=== PATIENT | male | born 1950 | race Caucasian/White ===

== ENCOUNTER 2016-06-13 07:20 | Emergency (ER) | payer OTHER ==
[~2016-06-13] VITALS: Ht 175.2 cm; Wt 91.6 kg
[~2016-06-13 07:20] MED LIST: 50% Dextro25 GM/50 M IV; ACETAMINOPHEN-H1 TA2 PO; ANTIBIOTIC O500 U/GM TP; BACTRIM DS 8001 TA1 PO; BACTRIM DS 8001 TAB PO; BIAXIN500 MG PO; CIPRO500 MG PO; CLARITIN10 MG PO; CLEOCIN150 MG PO; CLINDAMYCIN HC300 MG PO; COUMADIN5 M2; DARVOCET N 1001 TAB PO; DAYPRO600 M1 PO; DEPAKOTE ER500 MG PO; DULCOLAX10 MG RC; DULCOLAX5 MG PO; FLAGYL500 MG PO; GABAPENTIN300 MG PO; GLYBURIDE5 MG PO; HYDROCODONE BIT1 T11 PO; HYDROXYZINE PAM25 MG PO; IBU-6600 MG PO; KEFLEX500 MG PO; LISINOPRIL/HCTZ1 TAB; LISINOPRIL10 MG PO; MEDROL DOSEPAK4 MG PO; MERREM IV1 GM IV; METFORMIN HCL1000 MG; METFORMIN1000 MG PO; MIRTAZAPINE15 MG PO; MIRTAZAPINE7.5 MG PO; MOM30 M1 PO; MORPHINE2 MG/1 ML IV; MOTRIN800 MG PO; NITROSTAT0.4 MG; NORCO 325 MG-51 TAB PO; NOVOLIN N100 U/ML SC; NOVOLIN R100 U/ML SC; OXYCODONE5 M1 PO; PERCOCET 325 MG1 TA5 PO; PRILOSEC20 MG PO; PROTONIX40 MG PO; ROBITUSSIN AC 110 ML PO; SERTRALINE HYD100 MG; SERTRALINE100 MG PO; SIMVASTATIN10 MG PO; SODIUM CHLORIDE IV; TEMAZEPAM15 MG PO; TRAMADOL HCL50 MG PO; TYLENOL325 M1 PO; TYLENOL650 MG R; ULTRAM50 MG PO; VANCOMYCIN IV; VICODIN 5/500 505 MG PO; VICODIN ES 7501 TAB PO; ZANTAC150 MG PO; ZITHROMAX Z PA250 MG PO; ZOCOR20 MG PO; ZOFRAN ODT4 MG SL; ZOFRAN2 MG/ML IV; [UNRECOGNIZED DRUG - REMARK]
[2016-06-13 08:24] LABS: BASO % 0.3 % (0.0-1.0); EOS # 0.1 10*3/uL (0.0-0.4); EOS % 1.7 % (1.0-4.0); HEMATOCRIT 33.6 % (42.0-52.0); LYMPH # 1.6 10*3/uL (1.3-4.4); LYMPH % 25.6 % (27.0-41.0); MEAN CORPUSCULAR HGB 27.2 pg (27.0-31.0); MEAN CORPUSCULAR HGB CONC 32.7 g/dl (33.0-37.0); MEAN PLATELET VOLUME 8.6 fl (9.6-12.3); MONO # 0.4 10*3/uL (0.1-1.0); MONO % 7.1 % (3.0-9.0); NEUT # 3.9 10*3/uL (2.3-7.9); NEUT % 64.6 % (47.0-73.0); PLATELET COUNT AUTOMATED 174 10*3/uL (130-400); RED BLOOD COUNT 4.05 10*6/uL (4.50-5.90); RED CELL DISTRI WIDTH 13.8 % (0-14.5); WHITE BLOOD COUNT 6.1 10*3/uL (4.8-10.8)
[2016-06-13 08:35] LABS: BUN 18 mg/dl (7-24); CARBON DIOXIDE 26 mmol/L (21-32); CHLORIDE 106 mmol/L (98-107); EST GLOM FILT AFRICAN AMERICAN > 60 ml/min; GLUCOSE 146 mg/dL (65-99); POTASSIUM 4.4 mmol/L (3.5-5.1); SODIUM 141 mmol/L (136-145)
[2016-06-13] MEDS ORDERED: LEVOFLOXACIN500 MG PO (09:12)
[2016-06-13 09:37] VITALS: BP 162/96
[2016-06-13] MEDS ORDERED: ALBUTEROL2.5 MG/0.5 INH (09:37)
== END 2016-06-13 09:29 | disposition home or self-care (01) ==
LOC: ED 07:20
PROVIDERS: Emergency Medicine
DX: J18.1 Lobar pneumonia, unspecified organism (principal); J02.9 Acute pharyngitis, unspecified; B34.9 Viral infection, unspecified; F41.9 Anxiety disorder, unspecified; I48.91 Unspecified atrial fibrillation; I12.9 Hypertensive chronic kidney disease with stage 1 through stage 4 chronic kidney disease, or unspecified chronic kidney disease; N18.3 Chronic kidney disease, stage 3 (moderate); F32.9 Major depressive disorder, single episode, unspecified; E87.6 Hypokalemia; M19.90 Unspecified osteoarthritis, unspecified site; Z95.0 Presence of cardiac pacemaker; Z88.0 Allergy status to penicillin; Z79.4 Long term (current) use of insulin

== ENCOUNTER 2016-11-20 23:36 | Inpatient (IN) | payer OTHER ==
[~2016-11-20] VITALS: Ht 175.3 cm; Wt 94.1 kg
--- NOTE | ~2016-11-20 | CON ---
[place], [place] REPORT OF CONSULTATION NAME: JUSTA GOLDEN [facility] #: [id number] UNIT #: [id number] ROOM: 405 DOCTOR: CRISPIN MCCULLOUGH MD BIRTHDATE: [birth year] DOS: 11/22/2016 HISTORY OF PRESENT ILLNESS: This is a 66-year-old -Vietnamese man with no known history of coronary artery disease. He does have diabetes mellitus, had atrial fibrillation in the very remote past. My note of 2007 mentioned this. He had a pacemaker implanted in 1988 and had the leads removed and now has a pacemaker in the right subclavian area. He has Smith's esophagus, diverticulosis, depression, hepatitis A infection, hiatus hernia, essential hypertension, obesity and radiculopathy of the left arm, which causes chronic pain and also sleep apnea. He had a CPAP on and developed a heavy pain around the left side of the chest as he was sleeping on his right side. It felt like a heavy weight. He woke up ____ and came to the Emergency Department. The feeling lasted for more than 2 hours. It was not accompanied by any worsening shortness of breath, palpitations, dizziness, weakness, and had no nausea at that time. He does not recall any such pain previously. He does not smoke nor does he drink alcoholic beverages. HOME MEDICATIONS: Include Ventolin HFA, Alphagan eye drops, Depakote ER, gabapentin, glyburide, hydroxyzine, Novolin, latanoprost, lisinopril, hydrochlorothiazide, metformin, mirtazapine, sertraline, simvastatin and tramadol. PHYSICAL EXAMINATION: GENERAL: The patient is a very pleasant, alert, oriented, moderately obese. His complexion is fine. He is not jaundiced. There is no thyromegaly or finger clubbing. VITAL SIGNS: Pulse is regular at 64 beats per minute, blood pressure 181/79. NECK: Normal JVP. There is no bruit in the neck. HEART: There is no cardiomegaly. Auscultation reveals no murmurs. EXTREMITIES: Pedal pulses were easily appreciated. No edema in the lower extremities. LUNGS: Clear to auscultation. ABDOMEN: Supple and nontender. LABORATORY DATA: An ECG showed normal sinus rhythm and a normal pattern. Troponin I levels have been normal. IMPRESSION: This patient with multiple risk factors for coronary artery disease, had chest pain and has ruled out for acute myocardial infarction because of many risk factors, I think it is prudent to perform a Lexiscan Cardiolite study to exclude significant coronary artery disease. I thank you on behalf of Dr. Noriega for this consult. [place], [place] REPORT OF CONSULTATION NAME: JUSTA GOLDEN UNIT #: [id number] ROOM: 405 DOCTOR: CRISPIN MCCULLOUGH MD BIRTHDATE: [birth year] CRISPIN MCCULLOUGH MD CM:CONSTR:REPORT OF CONSULTATION 1849 11/23/16 0345 interface BJORN NORIEGA MD
--- NOTE | ~2016-11-20 | ST ---
[place], [place] EXERCISE STRESS TEST REPORT [id number] UN[facility] #: [id number] ROOM: 405 DOCTOR: BJORN NORIEGA MD BIRTHDATE: [birth year] DOS: 11/23/2016 Lexiscan portion of the Lexiscan Cardiolite stress test. Baseline cardiogram, sinus with nonspecific ST-T changes with intermittent atrial pacing and ventricular sensing, 0.4 mg of Lexiscan, duration of 10 seconds. No new EKG changes. No chest pain. Blood pressure and heart rate response was normal. Nuclear images will be reported separately. FINAL IMPRESSION: Indeterminate test secondary to the underlying paced rhythm. No new EKG changes. No chest pain. Blood pressure and heart rate response was normal. Nuclear images will be reported separately. BJORN NORIEGA MD CM:STRESS:EXERCISE STRESS TEST REPORT [id number] BJORN NORIEGA MD
[~2016-11-20 23:36] MED LIST changes: +ALBUTEROL2.5 MG/0.5 INH; +LEVOFLOXACIN500 MG PO
[2016-11-20 23:45] VITALS: BP 180/90
[2016-11-21] VITALS (9 sets, daily range): BP systolic 119–161; BP diastolic 58–83
[2016-11-21 00:11] LABS: BASO % 0.4 % (0.0-1.0); EOS # 0.1 10*3/uL (0.0-0.4); EOS % 1.6 % (1.0-4.0); HEMATOCRIT 33.8 % (42.0-52.0); HEMOGLOBIN 11.1 g/dl (14.0-18.0); LYMPH # 1.9 10*3/uL (1.3-4.4); LYMPH % 22.9 % (27.0-41.0); MEAN CELL VOLUME 83.7 fl (80.0-94.0); MEAN CORPUSCULAR HGB 27.5 pg (27.0-31.0); MEAN CORPUSCULAR HGB CONC 32.8 g/dl (33.0-37.0); MONO # 0.5 10*3/uL (0.1-1.0); MONO % 6.6 % (3.0-9.0); NEUT # 5.6 10*3/uL (2.3-7.9); PLATELET COUNT AUTOMATED 165 10*3/uL (130-400); RED BLOOD COUNT 4.04 10*6/uL (4.50-5.90); RED CELL DISTRI WIDTH 13.7 % (0-14.5); WHITE BLOOD COUNT 8.2 10*3/uL (4.8-10.8)
[2016-11-21 00:21] LABS: PROTHROMBIN TIME 10.6 SECONDS (9.0-12.4)
[2016-11-21 00:28] LABS: ALBUMIN 3.5 gm/dl (3.1-4.5); ALKALINE PHOSPHATASE 74 U/L (45-117); BILIRUBIN, TOTAL 0.5 mg/dl (0.2-1.0); BUN 15 mg/dl (7-24); CARBON DIOXIDE 28 mmol/L (21-32); CHLORIDE 102 mmol/L (98-107); EST GLOM FILT AFRICAN AMERICAN > 60 ml/min; GLUCOSE 180 mg/dL (65-99); MAGNESIUM 1.9 mg/dL (1.5-2.1); SGOT/AST 17 IU/L (3-35); SGPT/ALT 21 U/L (12-78); SODIUM 137 mmol/L (136-145); TOTAL PROTEIN 8.3 gm/dL (6.4-8.2)
[2016-11-21 00:35] LABS: TROPONIN I < 0.015 ng/ml (<0.045)
[2016-11-21 06:10] LABS: BASO % 0.5 % (0.0-1.0); EOS # 0.1 10*3/uL (0.0-0.4); EOS % 1.7 % (1.0-4.0); HEMATOCRIT 31.3 % (42.0-52.0); HEMOGLOBIN 10.4 g/dl (14.0-18.0); LYMPH # 1.8 10*3/uL (1.3-4.4); LYMPH % 26.9 % (27.0-41.0); MEAN CELL VOLUME 83.9 fl (80.0-94.0); MEAN CORPUSCULAR HGB 27.9 pg (27.0-31.0); MEAN CORPUSCULAR HGB CONC 33.2 g/dl (33.0-37.0); MEAN PLATELET VOLUME 9.3 fl (9.6-12.3); MONO # 0.5 10*3/uL (0.1-1.0); MONO % 7.3 % (3.0-9.0); NEUT # 4.2 10*3/uL (2.3-7.9); NEUT % 63.1 % (47.0-73.0); PLATELET COUNT AUTOMATED 156 10*3/uL (130-400); RED BLOOD COUNT 3.73 10*6/uL (4.50-5.90); RED CELL DISTRI WIDTH 13.7 % (0-14.5); WHITE BLOOD COUNT 6.6 10*3/uL (4.8-10.8)
[2016-11-21 06:23] LABS: HEMOGLOBIN A1c 8.1 % (4.8-5.6)
[2016-11-21 06:29] LABS: CPK 129 U/L (39-308); TROPONIN I < 0.015 ng/ml (<0.045)
[2016-11-21 06:45] LABS: BUN 14 mg/dl (7-24); CARBON DIOXIDE 25 mmol/L (21-32); CHLORIDE 106 mmol/L (98-107); CHOLESTEROL 119 mg/dL (<200); EST GLOM FILT AFRICAN AMERICAN > 60 ml/min; FREE T4 1.11 ng/dl (0.76-1.46); GLUCOSE 189 mg/dL (65-99); HDL CHOLESTEROL 36 mg/dl (40-60); LDL CHOLESTEROL 66 mg/dL (9-159); POTASSIUM 4.1 mmol/L (3.5-5.1); SODIUM 139 mmol/L (136-145); TRIGLYCERIDES 84 mg/dl (<150); VLDL CHOLESTEROL 17 mg/dL (6-40)
[2016-11-21 06:54] LABS: PROTHROMBIN TIME 10.9 SECONDS (9.0-12.4)
[2016-11-21 06:56] LABS: FOLIC ACID 8.84 ng/mL (>5.38)
[2016-11-21] MEDS ORDERED: ZOLOFT50 MG PO (10:09)
[2016-11-21] MEDS ORDERED: NEURONTIN600 MG PO (10:11)
[2016-11-21] MEDS ORDERED: LISINOPRIL-HYDR1 TA3 PO (10:16)
[2016-11-21] MEDS ORDERED: TRAMADOL HCL50 MG PO (10:21)
[2016-11-21] MEDS ORDERED: METFORMIN500 MG PO (10:23)
[2016-11-21] MEDS ORDERED: GLUCOSE4 GM PO (10:25)
[2016-11-21] MEDS ORDERED: VENTOLIN H0.09 MG/AC INH (10:27)
[2016-11-21] MEDS ORDERED: ALPHAGAN-P 0.2%5 ML OPH (10:28)
[2016-11-21] MEDS ORDERED: LATANOPROST 2.2.5 ML OP (10:29)
[2016-11-21 12:44] LABS: CKMB 3.5 ng/ml (0.5-3.6); CPK 135 U/L (39-308)
[2016-11-21 12:57] LABS: TROPONIN I < 0.015 ng/ml (<0.045)
[2016-11-22] VITALS: BP 156/81
[2016-11-22 08:00] VITALS: BP 169/79
[2016-11-22 12:00] VITALS: BP 175/75
[2016-11-22 16:00] VITALS: BP 181/79
[2016-11-22 20:00] VITALS: BP 160/62
[2016-11-23] VITALS: BP 156/63
[2016-11-23 04:00] VITALS: BP 150/70
[2016-11-23 08:00] VITALS: BP 150/75
[2016-11-23 12:00] VITALS: BP 145/68
== END 2016-11-23 14:14 | disposition home health service (06) | DRG 392 ==
LOC: ED 23:36 → 4E 11-21 00:51 → EDHOLD 11-21 00:51 → 4E 11-21 01:04
PROVIDERS: Emergency Medicine Emergency Medical Services; Internal Medicine
PROC: 4B02XSZ Measurement of Cardiac Pacemaker, External Approach (ICD-10-PCS; principal; 2016-11-21)
DX: K21.9 Gastro-esophageal reflux disease without esophagitis (principal); E44.0 Moderate protein-calorie malnutrition; E11.22 Type 2 diabetes mellitus with diabetic chronic kidney disease; E11.65 Type 2 diabetes mellitus with hyperglycemia; N18.3 Chronic kidney disease, stage 3 (moderate); I48.91 Unspecified atrial fibrillation; F32.9 Major depressive disorder, single episode, unspecified; I12.9 Hypertensive chronic kidney disease with stage 1 through stage 4 chronic kidney disease, or unspecified chronic kidney disease; R07.89 Other chest pain; D64.9 Anemia, unspecified; F41.9 Anxiety disorder, unspecified; M19.90 Unspecified osteoarthritis, unspecified site; Z66 Do not resuscitate; G47.30 Sleep apnea, unspecified; E78.5 Hyperlipidemia, unspecified; I25.10 Atherosclerotic heart disease of native coronary artery without angina pectoris; E66.9 Obesity, unspecified; Z68.30 Body mass index [BMI] 30.0-30.9, adult; Z88.0 Allergy status to penicillin; Z87.81 Personal history of (healed) traumatic fracture; Z82.49 Family history of ischemic heart disease and other diseases of the circulatory system; Z83.3 Family history of diabetes mellitus; Z80.9 Family history of malignant neoplasm, unspecified; Z79.4 Long term (current) use of insulin; Z79.899 Other long term (current) drug therapy; Z95.0 Presence of cardiac pacemaker

== ENCOUNTER 2017-02-28 22:40 | Emergency (ER) | payer OTHER ==
[~2017-02-28] VITALS: Ht 175.2 cm; Wt 92.5 kg
[~2017-02-28 22:40] MED LIST changes: +ALPHAGAN-P 0.2%5 ML OPH; +GLUCOSE4 GM PO; +LATANOPROST 2.2.5 ML OP; +LISINOPRIL-HYDR1 TA3 PO; +METFORMIN500 MG PO; +NEURONTIN600 MG PO; +VENTOLIN H0.09 MG/AC INH; +ZOLOFT50 MG PO
[2017-02-28 22:52] VITALS: BP 183/89
[2017-02-28 23:46] LABS: HEMATOCRIT 34.3 % (42.0-52.0); HEMOGLOBIN 11.6 g/dl (14.0-18.0); LYMPH # 0.9 10*3/uL (1.3-4.4); MEAN CELL VOLUME 83.5 fl (80.0-94.0); MEAN CORPUSCULAR HGB 28.2 pg (27.0-31.0); MEAN CORPUSCULAR HGB CONC 33.8 g/dl (33.0-37.0); MEAN PLATELET VOLUME 9.2 fl (9.6-12.3); MONO # 0.2 10*3/uL (0.1-1.0); MONO % 2.6 % (3.0-9.0); NEUT # 6.4 10*3/uL (2.3-7.9); NEUT % 84.5 % (47.0-73.0); PLATELET COUNT AUTOMATED 161 10*3/uL (130-400); RED BLOOD COUNT 4.11 10*6/uL (4.50-5.90); RED CELL DISTRI WIDTH 14.6 % (0-14.5); WHITE BLOOD COUNT 7.6 10*3/uL (4.8-10.8)
[2017-03-01 00:02] LABS: ALBUMIN 3.4 gm/dl (3.1-4.5); CREATININE 2.1 mg/dL (0.70-1.30); POTASSIUM 3.9 mmol/L (3.5-5.1); TOTAL PROTEIN 8.3 gm/dL (6.4-8.2)
== END 2017-03-01 02:19 | disposition home or self-care (01) ==
LOC: ED 22:40
PROVIDERS: Nurse Practitioner Family
DX: R73.9 Hyperglycemia, unspecified (principal); I12.9 Hypertensive chronic kidney disease with stage 1 through stage 4 chronic kidney disease, or unspecified chronic kidney disease; E11.22 Type 2 diabetes mellitus with diabetic chronic kidney disease; N18.3 Chronic kidney disease, stage 3 (moderate); Z79.4 Long term (current) use of insulin; I48.91 Unspecified atrial fibrillation; M19.90 Unspecified osteoarthritis, unspecified site; Z88.0 Allergy status to penicillin; Z79.899 Other long term (current) drug therapy

== ENCOUNTER 2017-04-14 16:44 | Emergency (ER) | payer OTHER ==
[~2017-04-14] VITALS: Ht 175.2 cm; Wt 94.3 kg
[2017-04-14 17:00] LABS: BASO % 0.3 % (0.0-1.0); EOS # 0.1 10*3/uL (0.0-0.4); EOS % 1.4 % (1.0-4.0); HEMATOCRIT 33.7 % (42.0-52.0); HEMOGLOBIN 11.4 g/dl (14.0-18.0); LYMPH # 1.5 10*3/uL (1.3-4.4); LYMPH % 23.5 % (27.0-41.0); MEAN CORPUSCULAR HGB 28.4 pg (27.0-31.0); MEAN CORPUSCULAR HGB CONC 33.8 g/dl (33.0-37.0); MEAN PLATELET VOLUME 9.1 fl (9.6-12.3); MONO # 0.4 10*3/uL (0.1-1.0); MONO % 6.7 % (3.0-9.0); NEUT # 4.2 10*3/uL (2.3-7.9); NEUT % 67.8 % (47.0-73.0); PLATELET COUNT AUTOMATED 183 10*3/uL (130-400); RED BLOOD COUNT 4.01 10*6/uL (4.50-5.90); RED CELL DISTRI WIDTH 13.4 % (0-14.5); WHITE BLOOD COUNT 6.3 10*3/uL (4.8-10.8)
[2017-04-14 17:09] LABS: ACT PARTIAL THROMBO TIME 23.3 SECONDS (20.8-31.5)
[2017-04-14 17:21] LABS: ALBUMIN 3.2 gm/dl (3.1-4.5); ALKALINE PHOSPHATASE 79 U/L (45-117); BUN 22 mg/dl (7-24); CHLORIDE 102 mmol/L (98-107); CREATININE 1.33 mg/dL (0.70-1.30); POTASSIUM 4.3 mmol/L (3.5-5.1); SGOT/AST 21 IU/L (3-35); SGPT/ALT 23 U/L (12-78); SODIUM 136 mmol/L (136-145); TOTAL PROTEIN 7.6 gm/dL (6.4-8.2)
[2017-04-14 17:22] LABS: TROPONIN I < 0.015 ng/ml (<0.045)
[2017-04-14 17:56] VITALS: BP 148/64
== END 2017-04-14 18:34 | disposition home or self-care (01) ==
LOC: ED 16:44
PROVIDERS: Student in an Organized Health Care Education/Training Program
DX: R07.89 Other chest pain (principal); I12.9 Hypertensive chronic kidney disease with stage 1 through stage 4 chronic kidney disease, or unspecified chronic kidney disease; N18.3 Chronic kidney disease, stage 3 (moderate); E11.9 Type 2 diabetes mellitus without complications; M19.90 Unspecified osteoarthritis, unspecified site; Z95.0 Presence of cardiac pacemaker; Z79.4 Long term (current) use of insulin; Z88.0 Allergy status to penicillin

== ENCOUNTER 2017-12-21 09:59 | Emergency (ER) | payer OTHER ==
[~2017-12-21] VITALS: Ht 175.2 cm; Wt 95.3 kg
[2017-12-21 10:48] LABS: BASO % 0.4 % (0.0-1.0); EOS # 0.1 10*3/uL (0.0-0.4); EOS % 1.7 % (1.0-4.0); HEMATOCRIT 38.1 % (42.0-52.0); HEMOGLOBIN 12.8 g/dl (14.0-18.0); LYMPH # 1.7 10*3/uL (1.3-4.4); LYMPH % 23.4 % (27.0-41.0); MEAN CELL VOLUME 88.8 fl (80.0-94.0); MEAN CORPUSCULAR HGB 29.8 pg (27.0-31.0); MEAN CORPUSCULAR HGB CONC 33.6 g/dl (33.0-37.0); MEAN PLATELET VOLUME 9.2 fl (9.6-12.3); MONO # 0.4 10*3/uL (0.1-1.0); MONO % 5.8 % (3.0-9.0); NEUT # 4.8 10*3/uL (2.3-7.9); NEUT % 68.1 % (47.0-73.0); PLATELET COUNT AUTOMATED 164 10*3/uL (130-400); RED BLOOD COUNT 4.29 10*6/uL (4.50-5.90); RED CELL DISTRI WIDTH 13.1 % (0-14.5); WHITE BLOOD COUNT 7.1 10*3/uL (4.8-10.8)
[2017-12-21 11:01] LABS: ALBUMIN 3.7 gm/dl (3.1-4.5); CREATININE 1.48 mg/dL (0.70-1.30); POTASSIUM 4.5 mmol/L (3.5-5.1); TOTAL PROTEIN 8.5 gm/dL (6.4-8.2); URIC ACID 9.6 mg/dL (3.5-7.2)
[2017-12-21] MEDS ORDERED: PREDNISONE50 MG PO (12:28)
[2017-12-21] MEDS ORDERED: NORCO 5-325 TA1 EACH PO (12:29)
[2017-12-21 12:35] VITALS: BP 146/80
== END 2017-12-21 12:33 | disposition home or self-care (01) ==
LOC: ED 09:59
PROVIDERS: Emergency Medicine
DX: M10.9 Gout, unspecified (principal); M79.672 Pain in left foot; E11.22 Type 2 diabetes mellitus with diabetic chronic kidney disease; I12.9 Hypertensive chronic kidney disease with stage 1 through stage 4 chronic kidney disease, or unspecified chronic kidney disease; N18.3 Chronic kidney disease, stage 3 (moderate); I48.91 Unspecified atrial fibrillation; M19.90 Unspecified osteoarthritis, unspecified site; E66.9 Obesity, unspecified; Z68.34 Body mass index [BMI] 34.0-34.9, adult; Z79.4 Long term (current) use of insulin; Z88.0 Allergy status to penicillin

== ENCOUNTER 2018-03-27 14:31 | Emergency (ER) | payer OTHER ==
[~2018-03-27] VITALS: Ht 175.2 cm; Wt 102.5 kg
[~2018-03-27 14:31] MED LIST changes: +NORCO 5-325 TA1 EACH PO; +PREDNISONE50 MG PO
[2018-03-27] MEDS ORDERED: SILVADENE,SSD C50 GM PO (14:56)
[2018-03-27] MEDS ORDERED: CLINDAMYCIN HC300 MG PO (15:16)
[2018-03-27 15:30] VITALS: BP 156/70
[2018-03-27] MEDS ORDERED: ULTRAM50 MG PO (15:43)
== END 2018-03-27 16:00 | disposition home or self-care (01) ==
LOC: ED 14:31
DX: T23.201A Burn of second degree of right hand, unspecified site, initial encounter (principal); T23.231A Burn of second degree of multiple right fingers (nail), not including thumb, initial encounter; M10.9 Gout, unspecified; I48.91 Unspecified atrial fibrillation; E11.22 Type 2 diabetes mellitus with diabetic chronic kidney disease; I12.9 Hypertensive chronic kidney disease with stage 1 through stage 4 chronic kidney disease, or unspecified chronic kidney disease; N18.9 Chronic kidney disease, unspecified; M19.90 Unspecified osteoarthritis, unspecified site; E66.9 Obesity, unspecified; Z68.34 Body mass index [BMI] 34.0-34.9, adult; Z95.0 Presence of cardiac pacemaker; Z88.0 Allergy status to penicillin; Z79.4 Long term (current) use of insulin; X10.2XXA Contact with fats and cooking oils, initial encounter; Y93.G3 Activity, cooking and baking; Y92.89 Other specified places as the place of occurrence of the external cause; Y99.8 Other external cause status

== ENCOUNTER → 2018-03-29 | Outpatient (CLI) | payer OTHER ==
[~2018-03-29] MED LIST changes: +SILVADENE,SSD C50 GM PO
== END | disposition home or self-care (01) ==
LOC: WOUNDCARE 04:28
DX: T23.301A Burn of third degree of right hand, unspecified site, initial encounter (principal); T31.0 Burns involving less than 10% of body surface; E11.22 Type 2 diabetes mellitus with diabetic chronic kidney disease; N18.3 Chronic kidney disease, stage 3 (moderate); I12.9 Hypertensive chronic kidney disease with stage 1 through stage 4 chronic kidney disease, or unspecified chronic kidney disease; M19.90 Unspecified osteoarthritis, unspecified site; F41.9 Anxiety disorder, unspecified; F32.9 Major depressive disorder, single episode, unspecified; Z95.0 Presence of cardiac pacemaker; X12.XXXA Contact with other hot fluids, initial encounter; Y93.89 Activity, other specified; Y92.89 Other specified places as the place of occurrence of the external cause; Y99.8 Other external cause status

== ENCOUNTER → 2018-04-12 | Outpatient (CLI) | payer OTHER | END | disposition home or self-care (01) | LOC: WOUNDCARE 04:32 | DX: T23.261D Burn of second degree of back of right hand, subsequent encounter (principal); T31.0 Burns involving less than 10% of body surface; E11.22 Type 2 diabetes mellitus with diabetic chronic kidney disease; I12.0 Hypertensive chronic kidney disease with stage 5 chronic kidney disease or end stage renal disease; N18.3 Chronic kidney disease, stage 3 (moderate); M19.90 Unspecified osteoarthritis, unspecified site; Z95.0 Presence of cardiac pacemaker; X12.XXXD Contact with other hot fluids, subsequent encounter ==

== ENCOUNTER 2018-05-30 09:03 | Emergency (ER) | payer OTHER ==
[~2018-05-30] VITALS: Ht 175.2 cm; Wt 104.3 kg
[2018-05-30 09:45] VITALS: BP 154/84
[2018-05-30 09:57] LABS: BASO % 0.5 % (0.0-1.0); EOS # 0.2 10*3/uL (0.0-0.4); EOS % 2.5 % (1.0-4.0); HEMATOCRIT 39.9 % (42.0-52.0); HEMOGLOBIN 13.4 g/dl (14.0-18.0); LYMPH # 1.3 10*3/uL (1.3-4.4); LYMPH % 21.8 % (27.0-41.0); MEAN CELL VOLUME 90.3 fl (80.0-94.0); MEAN CORPUSCULAR HGB 30.3 pg (27.0-31.0); MEAN CORPUSCULAR HGB CONC 33.6 g/dl (33.0-37.0); MEAN PLATELET VOLUME 9.6 fl (9.6-12.3); MONO # 0.3 10*3/uL (0.1-1.0); MONO % 5.6 % (3.0-9.0); NEUT # 4.2 10*3/uL (2.3-7.9); NEUT % 68.6 % (47.0-73.0); PLATELET COUNT AUTOMATED 143 10*3/uL (130-400); RED BLOOD COUNT 4.42 10*6/uL (4.50-5.90); RED CELL DISTRI WIDTH 13.2 % (0-14.5); WHITE BLOOD COUNT 6.1 10*3/uL (4.8-10.8)
[2018-05-30 10:12] LABS: ALBUMIN 3.2 gm/dl (3.1-4.5); ALKALINE PHOSPHATASE 72 U/L (45-117); BUN 23 mg/dl (7-24); CHLORIDE 102 mmol/L (98-107); CREATININE 1.36 mg/dL (0.70-1.30); POTASSIUM 3.9 mmol/L (3.5-5.1); SGOT/AST 15 IU/L (3-35); SGPT/ALT 20 U/L (12-78); SODIUM 137 mmol/L (136-145); TOTAL PROTEIN 7.9 gm/dL (6.4-8.2)
[2018-05-30] MEDS ORDERED: CEPHALEXIN500 M1 PO (11:41)
== END 2018-05-30 11:30 | disposition home or self-care (01) ==
LOC: ED 09:03
PROVIDERS: Nurse Practitioner Family
DX: L02.213 Cutaneous abscess of chest wall (principal); R23.4 Changes in skin texture; Z88.0 Allergy status to penicillin

== ENCOUNTER 2018-06-18 08:36 | Inpatient (IN) | payer OTHER ==
[2018-06-18] VITALS (7 sets, daily range): BP systolic 134–165; BP diastolic 56–93
[~2018-06-18] VITALS: Ht 172.7 cm; Wt 109.4 kg
--- NOTE | ~2018-06-18 | EKG ---
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
--- NOTE | ~2018-06-18 | PR ---
[place], [place] PROGRESS NOTE NAME: JUSTA GOLDEN Shil[facility] UNIT #: [id number] ROOM: 510 DOCTOR: BJORN NORIEGA MD BIRTHDATE: [birth year] DOS: 06/20/2018 SUBJECTIVE: The patient is very well known to me with history of sick sinus syndrome, permanent pacemaker on the right subclavian, history of infected left pacer site in the past, has a small contraction of debris in the left subclavian area of the previous pacer pocket. The patient does not look to be any actively septic, appears to be stable. There is no white count elevation. The patient is totally afebrile. The patient was seen by Dr. Butler, who was covering me. REVIEW OF SYSTEMS: Does have some shortness of breath and cough, no fever, no chills, no nausea, no vomiting. No chest pain. PHYSICAL EXAMINATION: VITAL SIGNS: Blood pressure is 160/60, he is in sinus rhythm. NECK: Supple, no JVD. LUNGS: Diminished breath sounds. HEART: Heart sounds are regular. NEUROLOGIC: Stable. LABORATORY DATA: White count is only 5.5, hemoglobin 12, hematocrit 36.9. Electrolytes are normal. Creatinine is 1.5. Ultrasound of the left upper extremity basically did not reveal any abscesses. There is a small collection with small debris filled collection in the left chest. IMPRESSION: The patient is admitted with pneumonitis, small left pocket fluid collection and debris collection. If needed surgical intervention is warranted, but I do not think this looks like an abscess at this point. RECOMMENDATIONS: Continue the present medications. Continue the antibiotics as ordered. Pneumonia is being treated. Continue the antihypertensive. Patient is a diabetic and history of sleep apnea also and we will follow up. [place], [place] PROGRESS NOTE NAME: JUSTA GOLDEN UNIT #: [id number] ROOM: 510 DOCTOR: BJORN NORIEGA MD BIRTHDATE: [birth year] BJORN NORIEGA MD CM:PNTRANS 07 BJORN NORIEGA MD 06/20/18 0719 interface
--- NOTE | ~2018-06-18 | CON ---
[place], [place] REPORT OF CONSULTATION NAME: JUSTA GOLDEN [facility] #: [id number] UNIT #: [id number] ROOM: 510 DOCTOR: CRISPIN MCCULLOUGH MD BIRTHDATE: [birth year] DOS: HISTORY OF PRESENT ILLNESS: This is a 68-year-old -Gabonese man with a history of atrial fibrillation in the very remote past, who had a pacemaker that got infected and was explanted many years ago. He had a chronic discharge from the pacemaker site on the left side and the pacemaker was replaced on the right side. He has never had a heart attack, heart failure. Stress test was done in 2017 that showed normal LV function and no ischemia. He has essential hypertension, morbid obesity, Smith's esophagus, diverticulosis, hepatitis A infection, hiatus hernia and chronic anemia, and chronic kidney disease and history of sleep apnea and radiculopathy/neuropathy as well. This patient was admitted to the hospital about a week ago because of increasing shortness of breath and he had quite a bit of weakness along with a cough, but had very little expectoration. He has had runny nose as well, but that did not last very long. He did not have any chest pain or pressure in the chest, did not have any jaw discomfort or arm discomfort. No orthopnea or swelling of the lower extremities. He has unsteady gait, but has not fallen. HOME MEDICATIONS: Included bronchodilator therapy, simvastatin, sertraline, metformin, lisinopril, hydrochlorothiazide, insulin, and tramadol. SOCIAL HISTORY: He quit smoking a very long time ago. Does not use alcoholic beverages. PHYSICAL EXAMINATION: GENERAL: Reveals the patient who is sitting in chair. He is very pleasant, alert, oriented. He is moderately obese. No thyromegaly or finger clubbing. He looks a little pale. VITAL SIGNS: Temperature is normal, pulse is 66 and regular, blood pressure 147/61. NECK: Normal JVP. AJR is negative. HEART: There is no carotid bruit, no cardiomegaly is present. Auscultation reveals no murmurs. EXTREMITIES: Pedal pulses were appreciated. He has trace pretibial edema. LABORATORY DATA: ECG showed normal sinus rhythm at 72 beats per minute and no pacing activity was identified. There is nonspecific ST elevation in the anterior chest leads. Monitor continuously showed normal sinus rhythm. IMPRESSION AND PLAN: 1. The patient does not have any evidence of cardiac decompensation. 2. The patient remains in normal sinus rhythm. 3. He has a pacemaker in the right subclavian region. 4. He has history of old infection in the old pacemaker pocket in the left anterior part of the chest and I think this need to be treated surgically and consultation from Dr. Moya would be appropriate. Hemodynamically is stable and no further workup is necessary. [place], [place] REPORT OF CONSULTATION [id number] UN[facility] #: [id number] ROOM: [facility] DOCTOR: CRISPIN MCCULLOUGH MD BIRTHDATE: [birth year] I thank you on behalf of Dr. Aguilera for this consult. CRISPIN MCCULLOUGH MD CM:CONSTR:REPORT OF CONSULTATION 1737 06/20/18 0042 interface
[~2018-06-18 08:36] MED LIST changes: +CEPHALEXIN500 M1 PO; +METFORMIN HYDR500 MG PO; -METFORMIN500 MG PO
[2018-06-18 08:59] LABS: BASO % 0.4 % (0.0-1.0); EOS # 0.2 10*3/uL (0.0-0.4); EOS % 3.4 % (1.0-4.0); HEMOGLOBIN 12.4 g/dl (14.0-18.0); LYMPH # 1.5 10*3/uL (1.3-4.4); LYMPH % 21.2 % (27.0-41.0); MEAN CELL VOLUME 90.2 fl (80.0-94.0); MEAN CORPUSCULAR HGB 30.2 pg (27.0-31.0); MEAN CORPUSCULAR HGB CONC 33.5 g/dl (33.0-37.0); MEAN PLATELET VOLUME 9.4 fl (9.6-12.3); MONO # 0.5 10*3/uL (0.1-1.0); MONO % 7.5 % (3.0-9.0); NEUT # 4.8 10*3/uL (2.3-7.9); NEUT % 67.1 % (47.0-73.0); PLATELET COUNT AUTOMATED 170 10*3/uL (130-400); WHITE BLOOD COUNT 7.2 10*3/uL (4.8-10.8)
[2018-06-18 09:10] LABS: ACT PARTIAL THROMBO TIME 24.7 SECONDS (20.8-31.5)
[2018-06-18 09:14] LABS: ALBUMIN 3.4 gm/dl (3.1-4.5); ALKALINE PHOSPHATASE 68 U/L (45-117); BUN 23 mg/dl (7-24); CHLORIDE 105 mmol/L (98-107); CREATININE 1.32 mg/dL (0.70-1.30); LIPASE 96 U/L (73-393); POTASSIUM 3.7 mmol/L (3.5-5.1); SGOT/AST 23 IU/L (3-35); SGPT/ALT 22 U/L (12-78); SODIUM 142 mmol/L (136-145); TOTAL PROTEIN 7.9 gm/dL (6.4-8.2)
[2018-06-18 09:20] LABS: TROPONIN I < 0.015 ng/ml (<0.045)
[2018-06-18 09:43] LABS: BILIRUBIN NEGATIVE (NEGATIVE); BLOOD TRACE-LYSED (NEGATIVE); CLARITY CLEAR (CLEAR); COLOR YELLOW (YELLOW); GLUCOSE NEGATIVE (NEGATIVE); KETONE NEGATIVE (NEGATIVE); LEUKO ESTERASE NEGATIVE (NEGATIVE); NITRITE NEGATIVE (NEGATIVE); PH 7.5 (5.0-9.0)
--- NOTE | 2018-06-18 10:20 | NUR ---
PATIENT TAKEN TO 5TH FLOOR AT THIS TIME BY THIS NURSE. JENNIFER FRANCO BEDSIDE REPORT GIVEN TO.
--- NOTE | 2018-06-18 10:39 | NUR ---
PATIENT DENIES ANY WOUNDS A&OX4.
--- NOTE | 2018-06-18 10:50 | NUR ---
A 68, admitted to 5E, under the services of DEV Paul DO with a diagnosis of ACUTE BRONCHITIS, UNSTEADY GAIT, GENERAL WEAKNESS. Chief complaint is MULTIPLE COMPLAINTS, NASAL/CHEST CONGESTION. Patient arrived via wheel chair from ER. Monitor applied. Initial assessment completed. Vital signs taken and recorded. DEV PAUL DO notified of admission to the unit. Orders received. See assessment for past medical history, medications and allergies. Patient and/or family oriented to unit. [facility] visitation policy reviewed. Clothing/patient valuable form completed. JENNIFER BOWENS
[2018-06-18] MEDS ORDERED: LANTUS SOL100 UNIT/1 SQ (12:47)
[2018-06-18] MEDS ORDERED: NOVOLOG100 UNIT/1 SQ (12:49)
--- NOTE | 2018-06-18 12:51 | NUR ---
PATIENTS MED REC UP TO DATE PER PATIENT AND . CALLED DR RODRIGUEZ AND MADE HER AWARE.
[2018-06-18 13:48] LABS: PHOSPHOROUS 3.4 mg/dL (2.5-4.9)
[2018-06-18 13:54] LABS: THYROID STIM HORMONE (HS) 1.86 uIU/ml (0.358-4.75)
--- NOTE | 2018-06-18 14:21 | NUR ---
NO WOUND CARE ORDERS RECEIVED. DR RODRIGUEZ STATES WOUND IS OKAY AND DOES NOT REQUIRE TREATMENT.
--- NOTE | 2018-06-18 15:02 | NUR ---
DR NORIEGA AWARE OF CONSULT. NO NEW ORDERS RECEIVED.
[2018-06-19] VITALS: BP 141/55
--- NOTE | 2018-06-19 02:41 | NUR ---
24 HR CHART CHECK COMPLETED.
[2018-06-19 06:40] LABS: BASO % 0.4 % (0.0-1.0); EOS % 0.7 % (1.0-4.0); HEMATOCRIT 36.9 % (42.0-52.0); LYMPH # 0.8 10*3/uL (1.3-4.4); LYMPH % 15.4 % (27.0-41.0); MEAN CELL VOLUME 91.3 fl (80.0-94.0); MEAN CORPUSCULAR HGB 29.7 pg (27.0-31.0); MEAN CORPUSCULAR HGB CONC 32.5 g/dl (33.0-37.0); MONO # 0.1 10*3/uL (0.1-1.0); MONO % 1.7 % (3.0-9.0); NEUT # 4.4 10*3/uL (2.3-7.9); NEUT % 81.2 % (47.0-73.0); PLATELET COUNT AUTOMATED 163 10*3/uL (130-400); RED BLOOD COUNT 4.04 10*6/uL (4.50-5.90); RED CELL DISTRI WIDTH 13.9 % (0-14.5); WHITE BLOOD COUNT 5.5 10*3/uL (4.8-10.8)
[2018-06-19 07:02] LABS: CREATININE 1.57 mg/dL (0.70-1.30); POTASSIUM 4.4 mmol/L (3.5-5.1)
--- NOTE | 2018-06-19 07:30 | NUR ---
ASSUMED CARE OF PATIENT. PATIENT SITTING UP IN CHAIR AT THIS TIME. NO S/S OF DISTRESS. CALL LIGHT WITHIN REACH. PATIENT PLEASANT AND INVITING.
--- NOTE | 2018-06-19 07:44 | NUR ---
CHICOJUSTA D [id number] Please refer to the physician's history and physical for past medical history, comorbid conditions, and allergies. Diagnosis: UNSTEADY GAIT,ACUTE BRONCHITIS,GENERAL WEAKNESS,NA Javon Score: 14,MODERATE RISK WOUND DESCRIPTIONS: Location of the wound: left chest Type of wound: surgical Thickness: Partial Size: 0.2cm x 0.2cm x 0.1cm Tunneling: none Undermining: none Sinus Tract: none Presence of Exudate: Purulent Amount: Light Color: Red Odor: None Periwound Skin Appearance: Normal Wound edges: approximated Pain (associated with wound): none at time of assessment How does patient state this happened? pt stated his pacemaker was infected back in 2012 and was removed by Dr. Cheema. He stated that ever since then the area hasnt't healed and he gets an opening and it drains about every 2-3 days. He stated that before it drains he has pain. He denies any odor. He denied having fevers. Surface the patient is resting on: Position Pro SKIN PREVENTION RECOMMENDATION: 1. Pressure redistribution support surface as appropriate 2. Elevate heels 3. Remove boots/TEDS every shift and reapply 4. Head of bed 30 degrees as tolerated 5. Assess nutrition and hydration 6. Manage moisture 7. Avoid the use of containment devices while in bed 8. Use absorptive products on surfaces limit layers of linens on bed 9. Turn and reposition every 1-2 hours in bed and every 1 hour in chair as tolerated 10. Weight shifts every 15 minutes while up in chair 11. Offloading with pillows or device to keep heels elevated off bed 12. Monitor skin at least every shift 13. Inspect under medical devices twice a day WOUND TREATMENT RECOMMENDATIONS: Ultrasound to left chest due to non healing wound. Cleanse left chest with nss and apply dsd daily and prn for soiling. Make cardiology aware of non-healing wound to left chest.
[2018-06-19] MEDS ORDERED: LISINOPRIL-HCT1 EACH PO (09:31)
--- NOTE | 2018-06-19 11:26 | NUR ---
Dr. Pacheco notified of wound care recommendations. Per Dr. Pacheco's request recommendations were printed and placed in hospitalist's office.
[2018-06-19 12:00] VITALS: BP 142/60
--- NOTE | 2018-06-19 13:11 | NUR ---
Retread Builder in to talk to patient. Patient states lives at HOME with . There are SOME steps in the home. Physician: SUKUMAR [facility] Home health services: NONE Patient's level of ADLs: MINIMAL ASSIST Patient has working utilities: YES DME: CANE CPAP Follow-up physician's appointment after d/c: WILL BE MADE BY HOSPITALIST NURSE DIRECTOR ON DISCHARGE Does patient want to access PORTAL?: NO Discharge plan PT STATES HE LIVES AT HOME WITH . STATES HE USES A CANE AND HAS A CPAP AT HOME. NO OTHER NEEDS AT THIS TIME PER PT. WILL CONTINUE TO FOLLOW.. EJ HANSON
[2018-06-19 16:00] VITALS: BP 147/61
--- NOTE | 2018-06-19 17:22 | NUR ---
DR TAPIA NOTIFIED OF CONSULT. STATES HE WILL SEE PATIENT IN THE MORNING.
[2018-06-19 20:00] VITALS: BP 159/67
--- NOTE | 2018-06-19 23:55 | NUR ---
24 HR chart check completed.
[2018-06-20] VITALS: BP 161/64
[2018-06-20 06:59] LABS: BASO % 0.1 % (0.0-1.0); EOS % 0.1 % (1.0-4.0); HEMATOCRIT 35.9 % (42.0-52.0); HEMOGLOBIN 11.7 g/dl (14.0-18.0); LYMPH % 10.4 % (27.0-41.0); MEAN CELL VOLUME 90.9 fl (80.0-94.0); MEAN CORPUSCULAR HGB 29.6 pg (27.0-31.0); MEAN CORPUSCULAR HGB CONC 32.6 g/dl (33.0-37.0); MONO # 0.3 10*3/uL (0.1-1.0); MONO % 3.1 % (3.0-9.0); NEUT # 8.2 10*3/uL (2.3-7.9); NEUT % 85.6 % (47.0-73.0); PLATELET COUNT AUTOMATED 178 10*3/uL (130-400); RED BLOOD COUNT 3.95 10*6/uL (4.50-5.90); WHITE BLOOD COUNT 9.6 10*3/uL (4.8-10.8)
[2018-06-20 07:25] LABS: CREATININE 1.48 mg/dL (0.70-1.30); POTASSIUM 5.1 mmol/L (3.5-5.1)
--- NOTE | 2018-06-20 10:14 | NUR ---
Follow up in the wound care center on June 27, 2018 at 9:00am with Dr. Perales it is located on the 1st floor of the hospital and the telephone number is [phone].
[2018-06-20 10:40] VITALS: BP 171/90
[2018-06-20 11:35] VITALS: BP 157/79
[2018-06-20 11:50] VITALS: BP 128/68
[2018-06-20 12:05] VITALS: BP 142/70
[2018-06-20 12:20] VITALS: BP 138/66
[2018-06-20] MEDS ORDERED: PREDNISONE10 MG PO (14:59)
[2018-06-20] MEDS ORDERED: VIBRAMYCIN100 MG PO (14:59)
--- NOTE | 2018-06-20 15:24 | NUR ---
PATIENT REFUSES DISCHARGE/POST OP PHOTOS.
--- NOTE | 2018-06-20 15:45 | NUR ---
Discharge instructions reviewed with patient/family. Patient receptive and verbalizes understanding. Follow-up care arranged. Written instructions given to patient/family. PATIENT TAKEN FROM FLOOR VIA WHEELCHAIR. NO S/S OF DISTRESS. JENNIFER OBWENS
== END 2018-06-20 15:45 | disposition home or self-care (01) | DRG 907 ==
LOC: ED 08:36 → EDHOLD 10:01 → 5E 10:01
PROVIDERS: Emergency Medicine; Family Medicine; Internal Medicine; ADMIT Internal Medicine
PROC: 0KBJ0ZZ Excision of Left Thorax Muscle, Open Approach (ICD-10-PCS; principal; 2018-06-20)
DX: T81.89XA Other complications of procedures, not elsewhere classified, initial encounter (principal); J18.9 Pneumonia, unspecified organism; J20.9 Acute bronchitis, unspecified; N18.3 Chronic kidney disease, stage 3 (moderate); F41.9 Anxiety disorder, unspecified; Y83.8 Other surgical procedures as the cause of abnormal reaction of the patient, or of later complication, without mention of misadventure at the time of the procedure; E78.5 Hyperlipidemia, unspecified; I48.91 Unspecified atrial fibrillation; M19.90 Unspecified osteoarthritis, unspecified site; E66.01 Morbid (severe) obesity due to excess calories; F32.9 Major depressive disorder, single episode, unspecified; R26.81 Unsteadiness on feet; G47.30 Sleep apnea, unspecified; I49.5 Sick sinus syndrome; E11.42 Type 2 diabetes mellitus with diabetic polyneuropathy; E11.22 Type 2 diabetes mellitus with diabetic chronic kidney disease; K57.90 Diverticulosis of intestine, part unspecified, without perforation or abscess without bleeding; M10.9 Gout, unspecified; I12.9 Hypertensive chronic kidney disease with stage 1 through stage 4 chronic kidney disease, or unspecified chronic kidney disease; K44.9 Diaphragmatic hernia without obstruction or gangrene; Z88.0 Allergy status to penicillin; Z79.4 Long term (current) use of insulin; Z79.899 Other long term (current) drug therapy; Z95.0 Presence of cardiac pacemaker; Z98.1 Arthrodesis status; Z83.3 Family history of diabetes mellitus; Z82.49 Family history of ischemic heart disease and other diseases of the circulatory system; Z80.0 Family history of malignant neoplasm of digestive organs; Z87.891 Personal history of nicotine dependence; Z68.36 Body mass index [BMI] 36.0-36.9, adult

== ENCOUNTER → 2018-06-27 | Outpatient (CLI) | payer OTHER ==
[~2018-06-27] MED LIST changes: +LANTUS SOL100 UNIT/1 SQ; +LISINOPRIL-HCT1 EACH PO; +NOVOLOG100 UNIT/1 SQ; +PREDNISONE10 MG PO; +VIBRAMYCIN100 MG PO
== END | disposition home or self-care (01) ==
LOC: WOUNDCARE 02:21
DX: T82.897D Other specified complication of cardiac prosthetic devices, implants and grafts, subsequent encounter (principal); L02.213 Cutaneous abscess of chest wall; L92.3 Foreign body granuloma of the skin and subcutaneous tissue; E11.22 Type 2 diabetes mellitus with diabetic chronic kidney disease; I12.9 Hypertensive chronic kidney disease with stage 1 through stage 4 chronic kidney disease, or unspecified chronic kidney disease; N18.3 Chronic kidney disease, stage 3 (moderate); M19.90 Unspecified osteoarthritis, unspecified site; I48.91 Unspecified atrial fibrillation; F41.9 Anxiety disorder, unspecified; F32.9 Major depressive disorder, single episode, unspecified; Z79.4 Long term (current) use of insulin; Z95.0 Presence of cardiac pacemaker; Y83.2 Surgical operation with anastomosis, bypass or graft as the cause of abnormal reaction of the patient, or of later complication, without mention of misadventure at the time of the procedure

== ENCOUNTER 2018-09-25 20:54 | Emergency (ER) | payer OTHER ==
[~2018-09-25] VITALS: Ht 175.2 cm; Wt 93.0 kg
[2018-09-25 20:56] VITALS: BP 163/73
[2018-09-25] MEDS ORDERED: SEPTDS PO (21:24)
[2018-12-04] MEDS ORDERED: TRAMADOL HCL50 MG PO (10:57)
== END 2018-09-25 21:49 | disposition home or self-care (01) ==
LOC: ED 20:54
DX: L08.89 Other specified local infections of the skin and subcutaneous tissue (principal); L53.8 Other specified erythematous conditions; I48.91 Unspecified atrial fibrillation; I12.9 Hypertensive chronic kidney disease with stage 1 through stage 4 chronic kidney disease, or unspecified chronic kidney disease; E11.22 Type 2 diabetes mellitus with diabetic chronic kidney disease; N18.3 Chronic kidney disease, stage 3 (moderate); E66.9 Obesity, unspecified; M19.90 Unspecified osteoarthritis, unspecified site; Z68.34 Body mass index [BMI] 34.0-34.9, adult; Z95.0 Presence of cardiac pacemaker; Z98.890 Other specified postprocedural states; Z79.4 Long term (current) use of insulin; Z79.899 Other long term (current) drug therapy; Z88.0 Allergy status to penicillin

== ENCOUNTER 2018-11-16 14:25 | Emergency (ER) | payer OTHER ==
[~2018-11-16] VITALS: Wt 97.5 kg
[~2018-11-16 14:25] MED LIST changes: +SEPTDS PO
[2018-11-16 14:27] VITALS: BP 150/84
[2018-11-16 16:56] LABS: BASO % 0.3 % (0.0-1.0); EOS # 0.1 10*3/uL (0.0-0.4); EOS % 1.7 % (1.0-4.0); HEMATOCRIT 36.6 % (42.0-52.0); HEMOGLOBIN 12.1 g/dl (14.0-18.0); LYMPH # 1.2 10*3/uL (1.3-4.4); LYMPH % 18.3 % (27.0-41.0); MEAN CELL VOLUME 94.1 fl (80.0-94.0); MEAN CORPUSCULAR HGB 31.1 pg (27.0-31.0); MEAN CORPUSCULAR HGB CONC 33.1 g/dl (33.0-37.0); MEAN PLATELET VOLUME 9.5 fl (9.6-12.3); MONO # 0.5 10*3/uL (0.1-1.0); MONO % 7.2 % (3.0-9.0); NEUT # 4.5 10*3/uL (2.3-7.9); NEUT % 71.7 % (47.0-73.0); PLATELET COUNT AUTOMATED 155 10*3/uL (130-400); RED BLOOD COUNT 3.89 10*6/uL (4.50-5.90); RED CELL DISTRI WIDTH 14.4 % (0-14.5); WHITE BLOOD COUNT 6.3 10*3/uL (4.8-10.8)
[2018-11-16 17:10] LABS: BUN 18 mg/dl (7-24); CHLORIDE 108 mmol/L (98-107); CREATININE 1.29 mg/dL (0.70-1.30); POTASSIUM 4.3 mmol/L (3.5-5.1); SODIUM 140 mmol/L (136-145)
[2018-11-16] MEDS ORDERED: Motrin,Rufen800 MG PO (17:38)
[2018-12-04] MEDS ORDERED: TRAMADOL HCL50 MG PO (10:57)
== END 2018-11-16 18:27 | disposition home or self-care (01) ==
LOC: ED 14:25
PROVIDERS: Nurse Practitioner
DX: S50.812A Abrasion of left forearm, initial encounter (principal); M25.512 Pain in left shoulder; M54.2 Cervicalgia; M79.605 Pain in left leg; Z88.0 Allergy status to penicillin; Z79.2 Long term (current) use of antibiotics; Z79.84 Long term (current) use of oral hypoglycemic drugs; Z95.0 Presence of cardiac pacemaker; W10.8XXA Fall (on) (from) other stairs and steps, initial encounter; Y93.89 Activity, other specified; Y92.89 Other specified places as the place of occurrence of the external cause; Y99.8 Other external cause status

== ENCOUNTER → 2018-11-20 | Outpatient (CLI) | payer OTHER ==
[~2018-11-20] MED LIST changes: +CYCLOBENZAPRINE10 MG PO; +Motrin,Rufen800 MG PO
== END | disposition home or self-care (01) ==
LOC: WOUNDCARE 00:58
DX: T82.897D Other specified complication of cardiac prosthetic devices, implants and grafts, subsequent encounter (principal); L92.3 Foreign body granuloma of the skin and subcutaneous tissue; L02.213 Cutaneous abscess of chest wall; E11.22 Type 2 diabetes mellitus with diabetic chronic kidney disease; I12.9 Hypertensive chronic kidney disease with stage 1 through stage 4 chronic kidney disease, or unspecified chronic kidney disease; N18.3 Chronic kidney disease, stage 3 (moderate); M19.90 Unspecified osteoarthritis, unspecified site; Z95.0 Presence of cardiac pacemaker; Y83.2 Surgical operation with anastomosis, bypass or graft as the cause of abnormal reaction of the patient, or of later complication, without mention of misadventure at the time of the procedure

== ENCOUNTER → 2018-11-27 | Outpatient (CLI) | payer OTHER | END | disposition home or self-care (01) | LOC: WOUNDCARE 00:35 | DX: T82.897D Other specified complication of cardiac prosthetic devices, implants and grafts, subsequent encounter (principal); L92.3 Foreign body granuloma of the skin and subcutaneous tissue; L02.213 Cutaneous abscess of chest wall; E11.22 Type 2 diabetes mellitus with diabetic chronic kidney disease; I12.9 Hypertensive chronic kidney disease with stage 1 through stage 4 chronic kidney disease, or unspecified chronic kidney disease; N18.3 Chronic kidney disease, stage 3 (moderate); M19.90 Unspecified osteoarthritis, unspecified site; Z95.0 Presence of cardiac pacemaker; Y83.2 Surgical operation with anastomosis, bypass or graft as the cause of abnormal reaction of the patient, or of later complication, without mention of misadventure at the time of the procedure ==

== ENCOUNTER 2019-02-14 07:24 | Emergency (ER) | payer OTHER ==
[~2019-02-14] VITALS: Ht 175.2 cm; Wt 108.9 kg
--- NOTE | ~2019-02-14 | EKG ---
[place], [place] ELECTROCARDIOGRAM REPORT NAME: JUSTA GOLDEN UNIT #: [id number] ROOM: DOCTOR: HEATH DRAFT REPORT BIRTHDATE: [address] 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
[~2019-02-14 07:24] MED LIST changes: -CYCLOBENZAPRINE10 MG PO
[2019-02-14 08:33] LABS: BASO % 0.4 % (0.0-1.0); EOS # 0.1 10*3/uL (0.0-0.4); EOS % 2.4 % (1.0-4.0); HEMATOCRIT 36.8 % (42.0-52.0); HEMOGLOBIN 12.4 g/dl (14.0-18.0); LYMPH # 1.2 10*3/uL (1.3-4.4); LYMPH % 26.7 % (27.0-41.0); MEAN CELL VOLUME 93.2 fl (80.0-94.0); MEAN CORPUSCULAR HGB 31.4 pg (27.0-31.0); MEAN CORPUSCULAR HGB CONC 33.7 g/dl (33.0-37.0); MEAN PLATELET VOLUME 10.1 fl (9.6-12.3); MONO # 0.3 10*3/uL (0.1-1.0); MONO % 6.8 % (3.0-9.0); NEUT # 2.9 10*3/uL (2.3-7.9); NEUT % 62.8 % (47.0-73.0); RED BLOOD COUNT 3.95 10*6/uL (4.50-5.90); RED CELL DISTRI WIDTH 13.6 % (0-14.5); WHITE BLOOD COUNT 4.5 10*3/uL (4.8-10.8)
[2019-02-14 08:35] LABS: PLATELET COUNT AUTOMATED 123 10*3/uL (130-400)
[2019-02-14 08:36] LABS: ACT PARTIAL THROMBO TIME 26.8 SECONDS (20.0-32.1); INTERNATIONAL NORM RATIO 0.9 (2.0-3.5)
[2019-02-14 08:41] LABS: ALBUMIN 3.2 gm/dl (3.1-4.5); ALKALINE PHOSPHATASE 63 U/L (45-117); BUN 23 mg/dl (7-24); CHLORIDE 102 mmol/L (98-107); LIPASE 68 U/L (73-393); POTASSIUM 3.9 mmol/L (3.5-5.1); SGOT/AST 18 IU/L (3-35); SGPT/ALT 17 U/L (12-78); SODIUM 135 mmol/L (136-145); TOTAL PROTEIN 7.7 gm/dL (6.4-8.2)
[2019-02-14 08:44] LABS: TROPONIN I < 0.015 ng/ml (<0.045)
[2019-02-14 10:02] VITALS: BP 142/84
[2019-02-14] MEDS ORDERED: CYCLOBENZAPRINE10 MG PO (15:06)
== END 2019-02-14 15:09 | disposition home or self-care (01) ==
LOC: ED 07:24
PROVIDERS: Emergency Medicine
DX: S29.012A Strain of muscle and tendon of back wall of thorax, initial encounter (principal); R21 Rash and other nonspecific skin eruption; R50.9 Fever, unspecified; D69.6 Thrombocytopenia, unspecified; I48.91 Unspecified atrial fibrillation; E11.22 Type 2 diabetes mellitus with diabetic chronic kidney disease; I12.9 Hypertensive chronic kidney disease with stage 1 through stage 4 chronic kidney disease, or unspecified chronic kidney disease; N18.3 Chronic kidney disease, stage 3 (moderate); E66.9 Obesity, unspecified; Z68.30 Body mass index [BMI] 30.0-30.9, adult; Z88.0 Allergy status to penicillin; Z79.899 Other long term (current) drug therapy; Z79.4 Long term (current) use of insulin; W10.9XXA Fall (on) (from) unspecified stairs and steps, initial encounter; Y93.89 Activity, other specified; Y92.89 Other specified places as the place of occurrence of the external cause; Y99.8 Other external cause status

== ENCOUNTER → 2019-03-06 | Outpatient (CLI) | payer OTHER ==
[~2019-03-06] MED LIST changes: +CYCLOBENZAPRINE10 MG PO; +ELIQUIS2.5 M1 PO
--- NOTE | 2019-03-06 07:17 | NUR ---
INFORMED CONSENT SIGNED FOR LEXISCAN STRESS TEST WITH DR. NORIEGA. RESTNG EKG ATRIAL PACED, HR 65, BP 132/70. PULSE OX 100% AND LUNGS CLEAR BILATERALLY. COMPLETED ONE MINUTE OF LEXISCAN PROTOCOL RECEIVING LEXISCAN 0.4MG OVER 10 SECONDS[address] NO ARRHYTHMI[address] OR ST CHANGES NOTED. PERIODS OF NSR PRESENT. PT C/O ODD FEELINGIN THE THROAT. LAST RECOVERY HR 70. BP 122/64. WAITNG NUCLEAR SCANNING IN STABLE CONDITION.
== END | disposition home or self-care (01) ==
LOC: CARD 01:31
DX: I48.91 Unspecified atrial fibrillation (principal); R53.81 Other malaise

== ENCOUNTER 2019-04-11 16:43 | Emergency (ER) | payer OTHER ==
[~2019-04-11] VITALS: Ht 175.2 cm; Wt 109.3 kg
[2019-04-11 16:44] VITALS: BP 148/66
== END 2019-04-11 17:55 | disposition home or self-care (01) ==
LOC: ED 16:43
DX: S21.102A Unspecified open wound of left front wall of thorax without penetration into thoracic cavity, initial encounter (principal); I10 Essential (primary) hypertension; I25.2 Old myocardial infarction; I48.91 Unspecified atrial fibrillation; E11.40 Type 2 diabetes mellitus with diabetic neuropathy, unspecified; Z88.0 Allergy status to penicillin; Z79.899 Other long term (current) drug therapy; Z95.0 Presence of cardiac pacemaker; X58.XXXA Exposure to other specified factors, initial encounter; Y93.89 Activity, other specified; Y92.89 Other specified places as the place of occurrence of the external cause; Y99.8 Other external cause status

== ENCOUNTER → 2019-05-22 | Outpatient (CLI) | payer OTHER | END | disposition home or self-care (01) | LOC: CT 08:39 | DX: K76.0 Fatty (change of) liver, not elsewhere classified (principal); K57.30 Diverticulosis of large intestine without perforation or abscess without bleeding; E11.9 Type 2 diabetes mellitus without complications ==

== ENCOUNTER 2019-06-05 04:28 | Emergency (ER) | payer OTHER ==
[~2019-06-05] VITALS: Ht 175.2 cm; Wt 108.0 kg
[2019-06-05 04:33] VITALS: BP 161/53
[2019-06-05 05:03] LABS: BASO % 0.5 % (0.0-1.0); EOS # 0.1 10*3/uL (0.0-0.4); EOS % 2.2 % (1.0-4.0); HEMATOCRIT 37.5 % (42.0-52.0); HEMOGLOBIN 12.2 g/dl (14.0-18.0); LYMPH # 2.1 10*3/uL (1.3-4.4); LYMPH % 33.1 % (27.0-41.0); MEAN CELL VOLUME 95.9 fl (80.0-94.0); MEAN CORPUSCULAR HGB 31.2 pg (27.0-31.0); MEAN CORPUSCULAR HGB CONC 32.5 g/dl (33.0-37.0); MEAN PLATELET VOLUME 9.7 fl (9.6-12.3); MONO # 0.4 10*3/uL (0.1-1.0); MONO % 6.8 % (3.0-9.0); NEUT # 3.7 10*3/uL (2.3-7.9); NEUT % 56.8 % (47.0-73.0); PLATELET COUNT AUTOMATED 151 10*3/uL (130-400); RED BLOOD COUNT 3.91 10*6/uL (4.50-5.90); WHITE BLOOD COUNT 6.5 10*3/uL (4.8-10.8)
[2019-06-05 05:13] LABS: INTERNATIONAL NORM RATIO 3.8 (2.0-3.5)
[2019-06-05 05:21] LABS: ALBUMIN 3.4 gm/dl (3.1-4.5); ALKALINE PHOSPHATASE 60 U/L (45-117); BUN 19 mg/dl (7-24); CHLORIDE 107 mmol/L (98-107); CREATININE 1.31 mg/dL (0.70-1.30); POTASSIUM 4.2 mmol/L (3.5-5.1); SGOT/AST 18 IU/L (3-35); SGPT/ALT 19 U/L (12-78); SODIUM 141 mmol/L (136-145); TOTAL PROTEIN 7.5 gm/dL (6.4-8.2); TROPONIN I < 0.015 ng/ml (<0.045)
[2019-06-05] MEDS ORDERED: ZANAFLEX2 M1 PO (06:14)
== END 2019-06-05 06:26 | disposition home or self-care (01) ==
LOC: ED 04:28
PROVIDERS: Emergency Medicine
DX: S29.012A Strain of muscle and tendon of back wall of thorax, initial encounter (principal); E11.22 Type 2 diabetes mellitus with diabetic chronic kidney disease; I12.9 Hypertensive chronic kidney disease with stage 1 through stage 4 chronic kidney disease, or unspecified chronic kidney disease; N18.3 Chronic kidney disease, stage 3 (moderate); I25.10 Atherosclerotic heart disease of native coronary artery without angina pectoris; I48.91 Unspecified atrial fibrillation; E66.9 Obesity, unspecified; E11.40 Type 2 diabetes mellitus with diabetic neuropathy, unspecified; M19.90 Unspecified osteoarthritis, unspecified site; Z88.0 Allergy status to penicillin; Z79.899 Other long term (current) drug therapy; Z79.4 Long term (current) use of insulin; Z68.30 Body mass index [BMI] 30.0-30.9, adult; X58.XXXA Exposure to other specified factors, initial encounter; Y93.89 Activity, other specified; Y92.89 Other specified places as the place of occurrence of the external cause; Y99.8 Other external cause status

== ENCOUNTER 2020-03-30 04:26 | Observation (INO) | payer OTHER ==
[~2020-03-30] VITALS: Ht 172.7 cm; Wt 106.6 kg
--- NOTE | 2020-03-30 07:00 | NUR ---
PUT. PT. ON BEDPAN.
--- NOTE | 2020-03-30 10:41 | NUR ---
TALKED WITH PT'S CONCERNING MEDICATION LIST, PT'S STATES SHE WILL CALL BACK WHEN SHE FINDS THE LIST.
--- NOTE | 2020-03-30 11:18 | NUR ---
TALKED WITH PT'S CONCERNING HOME MEDICATION LIST. REVIEWED MEDS ON THE PHONE.
--- NOTE | 2020-03-30 11:35 | NUR ---
C/O BACK PAIN, MEDICATED WITH 1 NORCO PER PT REQUEST.
--- NOTE | 2020-03-30 14:00 | NUR ---
A 70, admitted to , under the services of TALA Chung DO with a diagnosis of CHEST PAIN. Chief complaint is L SIDE CHEST PAIN RADIATING TO RIGHT SIDE. Patient arrived via bed from ER. Monitor applied. Initial assessment completed. Vital signs taken and recorded. TALA CHUNG DO notified of admission to the unit. Orders received. See assessment for past medical history, medications and allergies. Patient and/or family oriented to unit. [facility] visitation policy reviewed. Clothing/patient valuable form completed. NYDIA WAYNE
--- NOTE | 2020-03-30 17:39 | NUR ---
PATIENT C/O OF BACK PAIN RATES PAIN 7/10 MEDICATED WITH NORCO ORDERED PRN. WHITE BOARD UPDATED.
--- NOTE | 2020-03-30 20:00 | NUR ---
Neurological: awake,alert,oriented Respiratory: diminished bilaterally Breath sounds: clear Cough: none Cardiovascular: no problem Gastrointestinal: no problem Genito/Urinary: no problem Musculoskeketal: warm and dry, color pink JL GAUTHIER
--- NOTE | 2020-03-30 22:16 | NUR ---
C/O BACK AND RT LEG PAIN. REPOSITIONED W/O EFFECT. MEDICATED PER PRN ORDER.
--- NOTE | 2020-03-30 23:16 | NUR ---
NO FURTHER C/O PAIN NOTED. RESTING QUIETLY.
--- NOTE | 2020-03-31 07:00 | NUR ---
ARRIVED ON SHIFT, REPORT RECEIVED FROM OFFGOING NURSE, ASSUMED CARE OF PATIENT.
--- NOTE | 2020-03-31 07:30 | NUR ---
INTRODUCED SELF TO PATIENT, BED IN LOW POSITION, WITH WHEEL LOCKS ENGAGED, SIDE RAILS UP X 2 FOR TURNING AND REPOSITIONG, CALL LIGHT WITHIN REACH, NO NEEDS VOICED AT THIS TIME, WHITE BOARD UPDATED. ANDREW BLANCON, RN
--- NOTE | 2020-03-31 08:14 | NUR ---
Shift chart check completed.
--- NOTE | 2020-03-31 08:36 | NUR ---
PATIENT C/O LOW BACK, AND CHEST PAIN WHICH HE RATES 7/10, DESCRIBES SHARP AND PULLING PAIN MEDICATED WITH NORCO ORDERED PRN, WHITE BOARD UPDATED.
--- NOTE | 2020-03-31 11:01 | NUR ---
PHYSICAL THERAPY PT screen received. Pt admitted w chest pain, R flank pain, generalized weakness and fatigue. Please consult PT if patient has a decline in functional status below baseline. Fidel Iyer SPT Jennie Snyder PT
--- NOTE | 2020-03-31 13:56 | NUR ---
Armed Security Guard in to talk to patient. Patient states lives at HOME with . There are NO steps in the home. Physician: AYAAN PATINO [facility]: [facility] Home health services: NONE Patient's level of ADLs: INDEPENDENT Patient has working utilities: YES DME: [facility]ALKER IF NEEDED Follow-up physician's appointment after d/c: WILL BE MADE BY HOSPITALIST NURSE DIRECTOR ON DISCHARGE Does patient want to access PORTAL?: NO Discharge plan PT LIVES AT HOME WITH HIS AND IS INDEPENDENT IN HIS CARE. DENIES HE WILL HAVE ANY NEEDS ON DISCHARGE. PLANS TO RETURN HOME WHEN MEDICALLY STABLE. WILL CONTINUE TO FOLLOW. STATES HE WILL HAVE A RIDE HOME.. EJ HANSON
--- NOTE | 2020-03-31 23:04 | NUR ---
DR. SAVAGE NOTIFIED PATIENT IS ORDERED INSULIN AT BUT HAS NO BLOOD SUGAR CHECKS.
--- NOTE | 2020-04-01 07:00 | NUR ---
ARRIVED ON SHIFT, REPORT RECIEVED FROM OFFGOING NURSE, ASSUMED CARE OF PATIENT.
--- NOTE | 2020-04-01 07:29 | NUR ---
Shift chart check completed.
[2020-04-01 08:00] VITALS: BP 134/54
--- NOTE | 2020-04-01 12:00 | NUR ---
PT STATES HE WILL RETURN HOME WHEN MEDICALLY STABLE WITH NO NEEDS. WILL CONTINUE TO FOLLOW.
--- NOTE | 2020-04-01 13:32 | NUR ---
Discharge instructions reviewed with patient/family. Patient receptive and verbalizes understanding. Follow-up care arranged. Written instructions given to patient/family, IV REMOVED, TELEMETRY ACCOUNTED FOR, TAKEN OUT VIA W/C BY ANDREW SARABIA
== END 2020-04-01 13:51 | disposition home or self-care (01) ==
LOC: ED 04:26 → 5E 06:00 → EDHOLD 06:00 → 5E 13:25
PROVIDERS: ADMIT Student in an Organized Health Care Education/Training Program; ATTEND Student in an Organized Health Care Education/Training Program
DX: R10.9 Unspecified abdominal pain (principal); R53.1 Weakness; R53.83 Other fatigue; E11.649 Type 2 diabetes mellitus with hypoglycemia without coma; N30.90 Cystitis, unspecified without hematuria; D72.810 Lymphocytopenia; F41.9 Anxiety disorder, unspecified; F32.9 Major depressive disorder, single episode, unspecified; M19.90 Unspecified osteoarthritis, unspecified site; I48.91 Unspecified atrial fibrillation; I12.9 Hypertensive chronic kidney disease with stage 1 through stage 4 chronic kidney disease, or unspecified chronic kidney disease; N18.30 Chronic kidney disease, stage 3 unspecified; D64.9 Anemia, unspecified; G47.30 Sleep apnea, unspecified

== ENCOUNTER 2020-07-24 15:16 | Emergency (ER) | payer OTHER ==
[~2020-07-24] VITALS: Ht 175.2 cm; Wt 109.3 kg
[~2020-07-24 15:16] MED LIST changes: +ALLOPURINOL100 MG PO; +Coumadin3 MG PO; +Coumadin5 MG PO; +Coumadin7.5 MG PO; +DONEPEZIL HCL10 MG PO; +JANTOVEN6 M1 PO; +Mysoline50 MG PO; +NEURONTIN300 MG PO; +NORVASC5 MG PO; +TERAZOSIN HCL5 M1 PO; +ZANAFLEX2 M1 PO
[2020-07-24 15:44] VITALS: BP 148/72
[2020-07-24 16:06] LABS: BILIRUBIN Negative (Negative); BLOOD 2+ (Negative); CLARITY Clear (Clear); COLOR Yellow (Yellow); GLUCOSE Negative (Negative); KETONE Negative (Negative); LEUKO ESTERASE Negative (Negative); NITRITE Negative (Negative); PH 5.5 (4.5-8.0); SPECIFIC GRAVITY 1.015 (1.001-1.030)
[2020-07-24 16:14] LABS: BASO % 0.6 % (0.0-1.0); EOS # 0.1 10*3/uL (0.0-0.4); EOS % 2.1 % (1.0-4.0); HEMATOCRIT 38.1 % (42.0-52.0); LYMPH # 1.3 10*3/uL (1.3-4.4); LYMPH % 24.7 % (27.0-41.0); MEAN CELL VOLUME 91.8 fl (80.0-94.0); MEAN CORPUSCULAR HGB 28.9 pg (27.0-31.0); MEAN CORPUSCULAR HGB CONC 31.5 g/dl (33.0-37.0); MEAN PLATELET VOLUME 9.7 fl (9.6-12.3); MONO # 0.4 10*3/uL (0.1-1.0); MONO % 7.1 % (3.0-9.0); NEUT # 3.4 10*3/uL (2.3-7.9); NEUT % 65.1 % (47.0-73.0); PLATELET COUNT AUTOMATED 149 10*3/uL (130-400); RED BLOOD COUNT 4.15 10*6/uL (4.50-5.90); RED CELL DISTRI WIDTH 15.6 % (0-14.5); WHITE BLOOD COUNT 5.2 10*3/uL (4.8-10.8)
[2020-07-24 16:25] LABS: BACTERIA TRACE; EPITHELIAL CELLS 0-2; RBC 16-20 rbc/hpf (0-2)
[2020-07-24 16:32] LABS: ALBUMIN 3.3 gm/dl (3.1-4.5); ALKALINE PHOSPHATASE 79 U/L (45-117); BUN 21 mg/dl (7-24); CHLORIDE 108 mmol/L (98-107); CREATININE 1.26 mg/dL (0.70-1.30); POTASSIUM 3.9 mmol/L (3.5-5.1); SGOT/AST 23 IU/L (3-35); SGPT/ALT 26 U/L (12-78); SODIUM 143 mmol/L (136-145); TOTAL PROTEIN 7.7 gm/dL (6.4-8.2)
[2020-07-24] MEDS ORDERED: CEPHALEXIN500 M1 PO (17:49)
== END 2020-07-24 18:03 | disposition home or self-care (01) ==
LOC: ED 15:16
PROVIDERS: Physician Assistant
DX: S21.102A Unspecified open wound of left front wall of thorax without penetration into thoracic cavity, initial encounter (principal); R31.9 Hematuria, unspecified; E11.9 Type 2 diabetes mellitus without complications; I10 Essential (primary) hypertension; F41.9 Anxiety disorder, unspecified; I48.91 Unspecified atrial fibrillation; Z88.0 Allergy status to penicillin; Z79.899 Other long term (current) drug therapy; Z79.01 Long term (current) use of anticoagulants; Z79.4 Long term (current) use of insulin; Z95.0 Presence of cardiac pacemaker; Z98.890 Other specified postprocedural states; X58.XXXA Exposure to other specified factors, initial encounter; Y93.89 Activity, other specified; Y92.89 Other specified places as the place of occurrence of the external cause; Y99.8 Other external cause status

== ENCOUNTER → 2020-07-31 | Outpatient (CLI) | payer OTHER | LOC: WOUNDCARE 01:43 | PROVIDERS: ATTEND Nurse Practitioner | DX: T82.897D Other specified complication of cardiac prosthetic devices, implants and grafts, subsequent encounter (principal); L92.8 Other granulomatous disorders of the skin and subcutaneous tissue; L02.213 Cutaneous abscess of chest wall; E11.22 Type 2 diabetes mellitus with diabetic chronic kidney disease; I12.9 Hypertensive chronic kidney disease with stage 1 through stage 4 chronic kidney disease, or unspecified chronic kidney disease; N18.30 Chronic kidney disease, stage 3 unspecified; M19.90 Unspecified osteoarthritis, unspecified site; Z95.0 Presence of cardiac pacemaker; Y83.1 Surgical operation with implant of artificial internal device as the cause of abnormal reaction of the patient, or of later complication, without mention of misadventure at the time of the procedure ==

== ENCOUNTER → 2020-08-07 | Outpatient (CLI) | payer OTHER | LOC: WOUNDCARE 00:38 | PROVIDERS: ATTEND Nurse Practitioner | DX: T82.897D Other specified complication of cardiac prosthetic devices, implants and grafts, subsequent encounter (principal); L92.8 Other granulomatous disorders of the skin and subcutaneous tissue; L02.213 Cutaneous abscess of chest wall; E11.22 Type 2 diabetes mellitus with diabetic chronic kidney disease; I12.9 Hypertensive chronic kidney disease with stage 1 through stage 4 chronic kidney disease, or unspecified chronic kidney disease; N18.30 Chronic kidney disease, stage 3 unspecified; M19.90 Unspecified osteoarthritis, unspecified site; Z95.0 Presence of cardiac pacemaker; Y83.1 Surgical operation with implant of artificial internal device as the cause of abnormal reaction of the patient, or of later complication, without mention of misadventure at the time of the procedure ==

== ENCOUNTER → 2020-08-14 | Outpatient (CLI) | payer OTHER | LOC: WOUNDCARE 00:58 | PROVIDERS: ATTEND Nurse Practitioner | DX: T82.897D Other specified complication of cardiac prosthetic devices, implants and grafts, subsequent encounter (principal); L92.8 Other granulomatous disorders of the skin and subcutaneous tissue; L02.213 Cutaneous abscess of chest wall; E11.22 Type 2 diabetes mellitus with diabetic chronic kidney disease; I12.9 Hypertensive chronic kidney disease with stage 1 through stage 4 chronic kidney disease, or unspecified chronic kidney disease; N18.30 Chronic kidney disease, stage 3 unspecified; M19.90 Unspecified osteoarthritis, unspecified site; Z95.0 Presence of cardiac pacemaker; Y83.1 Surgical operation with implant of artificial internal device as the cause of abnormal reaction of the patient, or of later complication, without mention of misadventure at the time of the procedure ==

== ENCOUNTER → 2020-08-21 | Outpatient (CLI) | payer OTHER | LOC: WOUNDCARE 02:15 | PROVIDERS: ATTEND Nurse Practitioner | DX: T82.897D Other specified complication of cardiac prosthetic devices, implants and grafts, subsequent encounter (principal); L92.8 Other granulomatous disorders of the skin and subcutaneous tissue; L02.213 Cutaneous abscess of chest wall; E11.22 Type 2 diabetes mellitus with diabetic chronic kidney disease; I12.9 Hypertensive chronic kidney disease with stage 1 through stage 4 chronic kidney disease, or unspecified chronic kidney disease; N18.30 Chronic kidney disease, stage 3 unspecified; M19.90 Unspecified osteoarthritis, unspecified site; Z95.0 Presence of cardiac pacemaker; Y83.2 Surgical operation with anastomosis, bypass or graft as the cause of abnormal reaction of the patient, or of later complication, without mention of misadventure at the time of the procedure ==

== ENCOUNTER → 2020-08-28 | Outpatient (CLI) | payer OTHER | LOC: WOUNDCARE 02:52 | PROVIDERS: ATTEND Nurse Practitioner | DX: T82.897D Other specified complication of cardiac prosthetic devices, implants and grafts, subsequent encounter (principal); L92.8 Other granulomatous disorders of the skin and subcutaneous tissue; L02.213 Cutaneous abscess of chest wall; E11.22 Type 2 diabetes mellitus with diabetic chronic kidney disease; I12.9 Hypertensive chronic kidney disease with stage 1 through stage 4 chronic kidney disease, or unspecified chronic kidney disease; N18.30 Chronic kidney disease, stage 3 unspecified; M19.90 Unspecified osteoarthritis, unspecified site; Z95.0 Presence of cardiac pacemaker; Y83.2 Surgical operation with anastomosis, bypass or graft as the cause of abnormal reaction of the patient, or of later complication, without mention of misadventure at the time of the procedure ==

== ENCOUNTER → 2020-09-08 | Outpatient (CLI) | payer OTHER | LOC: WOUNDCARE 10:05 | PROVIDERS: ATTEND Nurse Practitioner | DX: T82.897D Other specified complication of cardiac prosthetic devices, implants and grafts, subsequent encounter (principal); L92.3 Foreign body granuloma of the skin and subcutaneous tissue; L02.213 Cutaneous abscess of chest wall; E11.22 Type 2 diabetes mellitus with diabetic chronic kidney disease; I12.9 Hypertensive chronic kidney disease with stage 1 through stage 4 chronic kidney disease, or unspecified chronic kidney disease; N18.30 Chronic kidney disease, stage 3 unspecified; M19.90 Unspecified osteoarthritis, unspecified site; Z95.0 Presence of cardiac pacemaker; Y83.2 Surgical operation with anastomosis, bypass or graft as the cause of abnormal reaction of the patient, or of later complication, without mention of misadventure at the time of the procedure ==

== ENCOUNTER 2021-02-24 12:10 | Emergency (ER) | payer OTHER ==
[~2021-02-24] VITALS: Ht 175.2 cm; Wt 108.9 kg
[2021-02-24 13:26] LABS: EOS % 0.3 % (1.0-4.0); HEMATOCRIT 34.4 % (42.0-52.0); LYMPH # 1.2 10*3/uL (1.3-4.4); LYMPH % 30.4 % (27.0-41.0); MEAN CELL VOLUME 93.2 fl (80.0-94.0); MEAN CORPUSCULAR HGB 30.6 pg (27.0-31.0); MEAN CORPUSCULAR HGB CONC 32.8 g/dl (33.0-37.0); MONO # 0.4 10*3/uL (0.1-1.0); MONO % 10.4 % (3.0-9.0); NEUT # 2.3 10*3/uL (2.3-7.9); NEUT % 57.9 % (47.0-73.0); PLATELET COUNT AUTOMATED 107 10*3/uL (130-400); RED BLOOD COUNT 3.69 10*6/uL (4.50-5.90); RED CELL DISTRI WIDTH 15.2 % (0-14.5)
[2021-02-24 13:49] LABS: ALBUMIN 2.8 gm/dl (3.1-4.5); CREATININE 1.81 mg/dL (0.70-1.30); TOTAL PROTEIN 7.1 gm/dL (6.4-8.2)
[2021-02-24 13:50] LABS: TROPONIN I 0.028 ng/ml (<0.045)
[2021-02-24 15:21] VITALS: BP 114/60
== END 2021-02-24 15:45 | disposition home or self-care (01) ==
LOC: ED 12:10
PROVIDERS: Emergency Medicine
DX: R05 Cough (principal); R06.02 Shortness of breath; E66.9 Obesity, unspecified; I12.9 Hypertensive chronic kidney disease with stage 1 through stage 4 chronic kidney disease, or unspecified chronic kidney disease; E11.22 Type 2 diabetes mellitus with diabetic chronic kidney disease; N18.30 Chronic kidney disease, stage 3 unspecified; I48.91 Unspecified atrial fibrillation; Z86.16 Personal history of COVID-19; Z88.0 Allergy status to penicillin; Z79.899 Other long term (current) drug therapy; Z79.4 Long term (current) use of insulin

== ENCOUNTER 2021-03-01 03:02 | Inpatient (IN) | payer OTHER ==
[2021-03-01] VITALS (7 sets, daily range): BP systolic 124–139; BP diastolic 49–67
[~2021-03-01] VITALS: Ht 175.2 cm; Wt 90.8 kg
[2021-03-01 03:44] LABS: EOS % 0.2 % (1.0-4.0); HEMATOCRIT 33.8 % (42.0-52.0); LYMPH # 0.8 10*3/uL (1.3-4.4); LYMPH % 13.9 % (27.0-41.0); MEAN CELL VOLUME 94.4 fl (80.0-94.0); MEAN CORPUSCULAR HGB CONC 32.8 g/dl (33.0-37.0); MEAN PLATELET VOLUME 10.5 fl (9.6-12.3); MONO # 0.4 10*3/uL (0.1-1.0); MONO % 7.8 % (3.0-9.0); NEUT # 4.2 10*3/uL (2.3-7.9); NEUT % 77.4 % (47.0-73.0); PLATELET COUNT AUTOMATED 193 10*3/uL (130-400); RED BLOOD COUNT 3.58 10*6/uL (4.50-5.90); RED CELL DISTRI WIDTH 14.6 % (0-14.5); WHITE BLOOD COUNT 5.4 10*3/uL (4.8-10.8)
[2021-03-01 04:01] LABS: ALBUMIN 2.5 gm/dl (3.1-4.5); ALKALINE PHOSPHATASE 80 U/L (45-117); BUN 50 mg/dl (7-24); CHLORIDE 96 mmol/L (98-107); CREATININE 1.78 mg/dL (0.70-1.30); POTASSIUM 4.3 mmol/L (3.5-5.1); SGOT/AST 30 IU/L (3-35); SGPT/ALT 22 U/L (12-78); SODIUM 132 mmol/L (136-145); TOTAL PROTEIN 7.2 gm/dL (6.4-8.2)
[2021-03-01 04:07] LABS: TROPONIN I < 0.015 ng/ml (<0.045)
[2021-03-01 10:15] LABS: BILIRUBIN Negative (Negative); BLOOD Trace-Lysed (Negative); CLARITY Clear (Clear); COLOR Yellow (Yellow); GLUCOSE 3+ (Negative); KETONE 1+ (Negative); LEUKO ESTERASE Negative (Negative); NITRITE Negative (Negative); SPECIFIC GRAVITY 1.025 (1.001-1.030)
[2021-03-01 10:42] LABS: BACTERIA TRACE; RBC 0-2 rbc/hpf (0-2); WBC 0-2 wbc/hpf (0-5)
[2021-03-01 10:49] LABS: ACT PARTIAL THROMBO TIME 59.5 SECONDS (20.0-32.1)
[2021-03-01 10:53] LABS: INTERNATIONAL NORM RATIO 9.3 (2.0-3.5)
[2021-03-02 00:54] VITALS: BP 135/75
[2021-03-02 03:51] VITALS: BP 159/81
[2021-03-02 06:04] LABS: ALBUMIN 2.5 gm/dl (3.1-4.5); BUN 41 mg/dl (7-24); CHLORIDE 100 mmol/L (98-107); POTASSIUM 4.1 mmol/L (3.5-5.1); SODIUM 136 mmol/L (136-145)
[2021-03-02 06:11] LABS: ALKALINE PHOSPHATASE 77 U/L (45-117); CHOLESTEROL 114 mg/dL (<200); CREATININE 1.36 mg/dL (0.70-1.30); FREE T4 1.32 ng/dl (0.76-1.46); LDL CHOLESTEROL 42 mg/dL (9-159); SGOT/AST 33 IU/L (3-35); SGPT/ALT 24 U/L (12-78); TOTAL PROTEIN 7.4 gm/dL (6.4-8.2); TRIGLYCERIDES 175 mg/dl (<150)
[2021-03-02 06:20] LABS: BASO % 0.2 % (0.0-1.0); EOS % 0.2 % (1.0-4.0); HEMATOCRIT 34.3 % (42.0-52.0); LYMPH # 0.9 10*3/uL (1.3-4.4); LYMPH % 17.8 % (27.0-41.0); MEAN CORPUSCULAR HGB 30.7 pg (27.0-31.0); MEAN CORPUSCULAR HGB CONC 32.4 g/dl (33.0-37.0); MEAN PLATELET VOLUME 11.1 fl (9.6-12.3); MONO # 0.4 10*3/uL (0.1-1.0); MONO % 8.6 % (3.0-9.0); NEUT # 3.7 10*3/uL (2.3-7.9); NEUT % 72.6 % (47.0-73.0); PLATELET COUNT AUTOMATED 221 10*3/uL (130-400); RED BLOOD COUNT 3.61 10*6/uL (4.50-5.90); RED CELL DISTRI WIDTH 14.7 % (0-14.5); WHITE BLOOD COUNT 5.1 10*3/uL (4.8-10.8)
[2021-03-02 06:39] LABS: INTERNATIONAL NORM RATIO 7.1 (2.0-3.5)
[2021-03-02 07:48] VITALS: BP 154/80
[2021-03-02 08:13] LABS: VITAMIN D, 25-HYDROXY 43.5 ng/mL (30-100)
[2021-03-02 22:30] VITALS: BP 143/62
[2021-03-03 07:41] LABS: INTERNATIONAL NORM RATIO 5.7 (2.0-3.5)
[2021-03-03 08:00] VITALS: BP 135/68
[2021-03-03 12:00] VITALS: BP 122/57
[2021-03-03 16:00] VITALS: BP 120/56
[2021-03-03 20:00] VITALS: BP 153/89
[2021-03-04] VITALS: BP 143/78
[2021-03-04 08:00] VITALS: BP 137/63
[2021-03-04 08:46] LABS: BASO % 0.2 % (0.0-1.0); EOS # 0.1 10*3/uL (0.0-0.4); HEMATOCRIT 35.2 % (42.0-52.0); LYMPH # 1.1 10*3/uL (1.3-4.4); LYMPH % 20.3 % (27.0-41.0); MEAN CELL VOLUME 96.4 fl (80.0-94.0); MEAN CORPUSCULAR HGB 30.7 pg (27.0-31.0); MEAN CORPUSCULAR HGB CONC 31.8 g/dl (33.0-37.0); MEAN PLATELET VOLUME 9.7 fl (9.6-12.3); MONO # 0.4 10*3/uL (0.1-1.0); MONO % 7.9 % (3.0-9.0); NEUT # 3.7 10*3/uL (2.3-7.9); NEUT % 68.7 % (47.0-73.0); PLATELET COUNT AUTOMATED 272 10*3/uL (130-400); RED BLOOD COUNT 3.65 10*6/uL (4.50-5.90); RED CELL DISTRI WIDTH 14.6 % (0-14.5); WHITE BLOOD COUNT 5.4 10*3/uL (4.8-10.8)
[2021-03-04 08:57] LABS: INTERNATIONAL NORM RATIO 2.8 (2.0-3.5)
[2021-03-04 09:40] LABS: BUN 26 mg/dl (7-24); CHLORIDE 105 mmol/L (98-107); CREATININE 1.16 mg/dL (0.70-1.30); POTASSIUM 3.6 mmol/L (3.5-5.1); SODIUM 139 mmol/L (136-145)
[2021-03-04] MEDS ORDERED: Coumadin3 MG PO (11:08)
[2021-03-04] MEDS ORDERED: ZITHROMAX500 MG PO (11:08)
[2021-03-04] MEDS ORDERED: OMNICEF300 MG PO (11:13)
[2021-03-04] MEDS ORDERED: LISINOPRIL20 MG PO (11:18)
[2021-03-04 11:33] VITALS: BP 108/70
== END 2021-03-04 12:30 | disposition home health service (06) | DRG 177 ==
LOC: ED 03:02 → EDHOLD 08:23 → 4E 08:23
PROVIDERS: Emergency Medicine; Registered Nurse; ADMIT Family Medicine; ATTEND Family Medicine
PROC: BD1BYZZ Fluoroscopy of Mouth/Oropharynx using Other Contrast (ICD-10-PCS; principal; 2021-03-02)
DX: J15.6 Pneumonia due to other Gram-negative bacteria (principal); N17.0 Acute kidney failure with tubular necrosis; E43 Unspecified severe protein-calorie malnutrition; G93.41 Metabolic encephalopathy; J96.01 Acute respiratory failure with hypoxia; I48.21 Permanent atrial fibrillation; E87.1 Hypo-osmolality and hyponatremia; R55 Syncope and collapse; E86.0 Dehydration; E11.22 Type 2 diabetes mellitus with diabetic chronic kidney disease; I12.9 Hypertensive chronic kidney disease with stage 1 through stage 4 chronic kidney disease, or unspecified chronic kidney disease; N18.31 Chronic kidney disease, stage 3a; S09.90XA Unspecified injury of head, initial encounter; X58.XXXA Exposure to other specified factors, initial encounter; E11.65 Type 2 diabetes mellitus with hyperglycemia; F41.9 Anxiety disorder, unspecified; F32.9 Major depressive disorder, single episode, unspecified; G47.30 Sleep apnea, unspecified; D64.9 Anemia, unspecified; E66.9 Obesity, unspecified; W19.XXXA Unspecified fall, initial encounter; Y93.89 Activity, other specified; Y92.89 Other specified places as the place of occurrence of the external cause; Z95.0 Presence of cardiac pacemaker; B94.8 Sequelae of other specified infectious and parasitic diseases; Y99.8 Other external cause status; Z79.4 Long term (current) use of insulin; Z82.49 Family history of ischemic heart disease and other diseases of the circulatory system; Z80.0 Family history of malignant neoplasm of digestive organs; Z88.0 Allergy status to penicillin; Z79.51 Long term (current) use of inhaled steroids; Z79.899 Other long term (current) drug therapy; Z79.01 Long term (current) use of anticoagulants; Z68.32 Body mass index [BMI] 32.0-32.9, adult

== ENCOUNTER → 2021-03-10 | Outpatient (CLI) | payer OTHER ==
[~2021-03-10] MED LIST changes: +LISINOPRIL20 MG PO; +OMNICEF300 MG PO; +ZITHROMAX500 MG PO
== END ==
LOC: WOUNDCARE 09:32
PROVIDERS: ATTEND Surgery
DX: E11.621 Type 2 diabetes mellitus with foot ulcer (principal); L89.623 Pressure ulcer of left heel, stage 3; L97.421 Non-pressure chronic ulcer of left heel and midfoot limited to breakdown of skin; S90.822A Blister (nonthermal), left foot, initial encounter; E11.22 Type 2 diabetes mellitus with diabetic chronic kidney disease; I12.9 Hypertensive chronic kidney disease with stage 1 through stage 4 chronic kidney disease, or unspecified chronic kidney disease; N18.30 Chronic kidney disease, stage 3 unspecified; I48.91 Unspecified atrial fibrillation; R26.9 Unspecified abnormalities of gait and mobility; M19.90 Unspecified osteoarthritis, unspecified site; F41.9 Anxiety disorder, unspecified; F32.9 Major depressive disorder, single episode, unspecified; X58.XXXA Exposure to other specified factors, initial encounter; Y93.89 Activity, other specified; Y92.89 Other specified places as the place of occurrence of the external cause; Y99.8 Other external cause status; Z95.0 Presence of cardiac pacemaker

== ENCOUNTER → 2021-03-17 | Outpatient (CLI) | payer OTHER | LOC: WOUNDCARE 01:30 | PROVIDERS: ATTEND Surgery | DX: E11.621 Type 2 diabetes mellitus with foot ulcer (principal); L89.623 Pressure ulcer of left heel, stage 3; L97.421 Non-pressure chronic ulcer of left heel and midfoot limited to breakdown of skin; S90.822D Blister (nonthermal), left foot, subsequent encounter; E11.22 Type 2 diabetes mellitus with diabetic chronic kidney disease; I12.9 Hypertensive chronic kidney disease with stage 1 through stage 4 chronic kidney disease, or unspecified chronic kidney disease; N18.30 Chronic kidney disease, stage 3 unspecified; I48.91 Unspecified atrial fibrillation; M19.90 Unspecified osteoarthritis, unspecified site; X58.XXXD Exposure to other specified factors, subsequent encounter ==

== ENCOUNTER → 2021-03-23 | Outpatient (CLI) | payer OTHER | LOC: WOUNDCARE 10:54 | PROVIDERS: ATTEND Nurse Practitioner Primary Care | DX: E11.621 Type 2 diabetes mellitus with foot ulcer (principal); L89.623 Pressure ulcer of left heel, stage 3; L97.421 Non-pressure chronic ulcer of left heel and midfoot limited to breakdown of skin; S90.822D Blister (nonthermal), left foot, subsequent encounter; E11.22 Type 2 diabetes mellitus with diabetic chronic kidney disease; I12.9 Hypertensive chronic kidney disease with stage 1 through stage 4 chronic kidney disease, or unspecified chronic kidney disease; N18.30 Chronic kidney disease, stage 3 unspecified; I48.91 Unspecified atrial fibrillation; M19.90 Unspecified osteoarthritis, unspecified site; X58.XXXD Exposure to other specified factors, subsequent encounter ==

== ENCOUNTER → 2021-03-30 | Outpatient (CLI) | payer OTHER | LOC: WOUNDCARE 09:31 | PROVIDERS: ATTEND Nurse Practitioner Family | DX: E11.621 Type 2 diabetes mellitus with foot ulcer (principal); L89.623 Pressure ulcer of left heel, stage 3; L97.421 Non-pressure chronic ulcer of left heel and midfoot limited to breakdown of skin; S90.822D Blister (nonthermal), left foot, subsequent encounter; E11.22 Type 2 diabetes mellitus with diabetic chronic kidney disease; I12.9 Hypertensive chronic kidney disease with stage 1 through stage 4 chronic kidney disease, or unspecified chronic kidney disease; I48.91 Unspecified atrial fibrillation; M19.90 Unspecified osteoarthritis, unspecified site; X58.XXXD Exposure to other specified factors, subsequent encounter ==

== ENCOUNTER → 2021-04-06 | Outpatient (CLI) | payer OTHER | LOC: WOUNDCARE 00:59 | PROVIDERS: ATTEND Nurse Practitioner Family | DX: E11.621 Type 2 diabetes mellitus with foot ulcer (principal); L89.623 Pressure ulcer of left heel, stage 3; L97.421 Non-pressure chronic ulcer of left heel and midfoot limited to breakdown of skin; S90.822D Blister (nonthermal), left foot, subsequent encounter; E11.22 Type 2 diabetes mellitus with diabetic chronic kidney disease; I12.9 Hypertensive chronic kidney disease with stage 1 through stage 4 chronic kidney disease, or unspecified chronic kidney disease; N18.30 Chronic kidney disease, stage 3 unspecified; I48.91 Unspecified atrial fibrillation; M19.90 Unspecified osteoarthritis, unspecified site; X58.XXXD Exposure to other specified factors, subsequent encounter ==

== ENCOUNTER 2021-04-07 09:27 | Emergency (ER) | payer OTHER ==
[~2021-04-07] VITALS: Ht 175.2 cm; Wt 110.7 kg
[2021-04-07 09:31] VITALS: BP 171/64
== END 2021-04-07 10:43 | disposition home or self-care (01) ==
LOC: ED 09:27
DX: S00.31XA Abrasion of nose, initial encounter (principal); S80.211A Abrasion, right knee, initial encounter; S80.212A Abrasion, left knee, initial encounter; W01.0XXA Fall on same level from slipping, tripping and stumbling without subsequent striking against object, initial encounter; Y93.89 Activity, other specified; Y92.89 Other specified places as the place of occurrence of the external cause; Y99.8 Other external cause status

== ENCOUNTER → 2021-04-13 | Outpatient (CLI) | payer OTHER | LOC: WOUNDCARE 00:24 | PROVIDERS: ATTEND Nurse Practitioner Family | DX: E11.621 Type 2 diabetes mellitus with foot ulcer (principal); L89.623 Pressure ulcer of left heel, stage 3; L97.421 Non-pressure chronic ulcer of left heel and midfoot limited to breakdown of skin; S90.822D Blister (nonthermal), left foot, subsequent encounter; E11.22 Type 2 diabetes mellitus with diabetic chronic kidney disease; I12.9 Hypertensive chronic kidney disease with stage 1 through stage 4 chronic kidney disease, or unspecified chronic kidney disease; N18.30 Chronic kidney disease, stage 3 unspecified; I48.91 Unspecified atrial fibrillation; M19.90 Unspecified osteoarthritis, unspecified site; X58.XXXD Exposure to other specified factors, subsequent encounter ==

== ENCOUNTER → 2021-04-20 | Outpatient (CLI) | payer OTHER | LOC: WOUNDCARE 02:06 | PROVIDERS: ATTEND Surgery | DX: E11.621 Type 2 diabetes mellitus with foot ulcer (principal); L89.623 Pressure ulcer of left heel, stage 3; L97.421 Non-pressure chronic ulcer of left heel and midfoot limited to breakdown of skin; S90.822D Blister (nonthermal), left foot, subsequent encounter; E11.22 Type 2 diabetes mellitus with diabetic chronic kidney disease; I12.9 Hypertensive chronic kidney disease with stage 1 through stage 4 chronic kidney disease, or unspecified chronic kidney disease; N18.30 Chronic kidney disease, stage 3 unspecified; I48.91 Unspecified atrial fibrillation; M19.90 Unspecified osteoarthritis, unspecified site; X58.XXXD Exposure to other specified factors, subsequent encounter ==

== ENCOUNTER → 2021-04-27 | Outpatient (CLI) | payer OTHER | LOC: WOUNDCARE 01:36 | PROVIDERS: ATTEND Nurse Practitioner Family | DX: E11.621 Type 2 diabetes mellitus with foot ulcer (principal); L89.623 Pressure ulcer of left heel, stage 3; L97.421 Non-pressure chronic ulcer of left heel and midfoot limited to breakdown of skin; S90.822D Blister (nonthermal), left foot, subsequent encounter; E11.22 Type 2 diabetes mellitus with diabetic chronic kidney disease; I12.9 Hypertensive chronic kidney disease with stage 1 through stage 4 chronic kidney disease, or unspecified chronic kidney disease; N18.30 Chronic kidney disease, stage 3 unspecified; I48.91 Unspecified atrial fibrillation; M19.90 Unspecified osteoarthritis, unspecified site; Z95.0 Presence of cardiac pacemaker; X58.XXXD Exposure to other specified factors, subsequent encounter ==

== ENCOUNTER → 2021-05-04 | Outpatient (CLI) | payer OTHER | LOC: WOUNDCARE 02:35 | PROVIDERS: ATTEND Nurse Practitioner Family | DX: E11.621 Type 2 diabetes mellitus with foot ulcer (principal); L89.623 Pressure ulcer of left heel, stage 3; L97.421 Non-pressure chronic ulcer of left heel and midfoot limited to breakdown of skin; S90.822D Blister (nonthermal), left foot, subsequent encounter; E11.22 Type 2 diabetes mellitus with diabetic chronic kidney disease; I12.9 Hypertensive chronic kidney disease with stage 1 through stage 4 chronic kidney disease, or unspecified chronic kidney disease; N18.30 Chronic kidney disease, stage 3 unspecified; I48.91 Unspecified atrial fibrillation; M19.90 Unspecified osteoarthritis, unspecified site; Z95.0 Presence of cardiac pacemaker; X58.XXXD Exposure to other specified factors, subsequent encounter ==

== ENCOUNTER → 2021-05-11 | Outpatient (CLI) | payer OTHER | LOC: WOUNDCARE 01:18 | PROVIDERS: ATTEND Nurse Practitioner Family | DX: E11.621 Type 2 diabetes mellitus with foot ulcer (principal); L89.623 Pressure ulcer of left heel, stage 3; L97.421 Non-pressure chronic ulcer of left heel and midfoot limited to breakdown of skin; S90.822D Blister (nonthermal), left foot, subsequent encounter; E11.22 Type 2 diabetes mellitus with diabetic chronic kidney disease; I12.9 Hypertensive chronic kidney disease with stage 1 through stage 4 chronic kidney disease, or unspecified chronic kidney disease; N18.30 Chronic kidney disease, stage 3 unspecified; I48.91 Unspecified atrial fibrillation; M19.90 Unspecified osteoarthritis, unspecified site; Z95.0 Presence of cardiac pacemaker; X58.XXXD Exposure to other specified factors, subsequent encounter ==

== ENCOUNTER → 2021-05-18 | Outpatient (CLI) | payer OTHER | LOC: WOUNDCARE 05:17 | PROVIDERS: ATTEND Nurse Practitioner Family | DX: E11.621 Type 2 diabetes mellitus with foot ulcer (principal); L89.623 Pressure ulcer of left heel, stage 3; L97.421 Non-pressure chronic ulcer of left heel and midfoot limited to breakdown of skin; S90.822D Blister (nonthermal), left foot, subsequent encounter; E11.22 Type 2 diabetes mellitus with diabetic chronic kidney disease; I12.9 Hypertensive chronic kidney disease with stage 1 through stage 4 chronic kidney disease, or unspecified chronic kidney disease; N18.30 Chronic kidney disease, stage 3 unspecified; I48.91 Unspecified atrial fibrillation; M19.90 Unspecified osteoarthritis, unspecified site; Z95.0 Presence of cardiac pacemaker; X58.XXXD Exposure to other specified factors, subsequent encounter ==

== ENCOUNTER → 2021-05-25 | Outpatient (CLI) | payer OTHER | LOC: WOUNDCARE 00:42 | PROVIDERS: ATTEND Nurse Practitioner Family | DX: E11.621 Type 2 diabetes mellitus with foot ulcer (principal); L89.623 Pressure ulcer of left heel, stage 3; L97.421 Non-pressure chronic ulcer of left heel and midfoot limited to breakdown of skin; S90.822D Blister (nonthermal), left foot, subsequent encounter; E11.22 Type 2 diabetes mellitus with diabetic chronic kidney disease; I12.9 Hypertensive chronic kidney disease with stage 1 through stage 4 chronic kidney disease, or unspecified chronic kidney disease; N18.30 Chronic kidney disease, stage 3 unspecified; I48.91 Unspecified atrial fibrillation; M19.90 Unspecified osteoarthritis, unspecified site; Z95.0 Presence of cardiac pacemaker; X58.XXXD Exposure to other specified factors, subsequent encounter ==

== ENCOUNTER → 2021-06-01 | Outpatient (CLI) | payer OTHER | LOC: WOUNDCARE 01:04 | PROVIDERS: ATTEND Nurse Practitioner Family | DX: E11.621 Type 2 diabetes mellitus with foot ulcer (principal); L89.623 Pressure ulcer of left heel, stage 3; L97.428 Non-pressure chronic ulcer of left heel and midfoot with other specified severity; S90.822D Blister (nonthermal), left foot, subsequent encounter; E11.22 Type 2 diabetes mellitus with diabetic chronic kidney disease; I12.9 Hypertensive chronic kidney disease with stage 1 through stage 4 chronic kidney disease, or unspecified chronic kidney disease; N18.30 Chronic kidney disease, stage 3 unspecified; I48.91 Unspecified atrial fibrillation; M19.90 Unspecified osteoarthritis, unspecified site; Z95.0 Presence of cardiac pacemaker; X58.XXXD Exposure to other specified factors, subsequent encounter ==

== ENCOUNTER 2021-08-12 22:02 | Observation (INO) | payer OTHER ==
[~2021-08-12] VITALS: Ht 175.3 cm; Wt 102.5 kg
[2021-08-12 22:16] VITALS: BP 178/94
[2021-08-13 02:15] VITALS: BP 174/84
[2021-08-13 02:16] VITALS: BP 174/84
[2021-08-13 06:22] LABS: BASO % 0.2 % (0.0-1.0); EOS % 0.6 % (1.0-4.0); HEMATOCRIT 40.2 % (42.0-52.0); LYMPH # 0.9 10*3/uL (1.3-4.4); LYMPH % 16.8 % (27.0-41.0); MEAN CELL VOLUME 89.7 fl (80.0-94.0); MEAN CORPUSCULAR HGB 29.9 pg (27.0-31.0); MEAN CORPUSCULAR HGB CONC 33.3 g/dl (33.0-37.0); MEAN PLATELET VOLUME 10.3 fl (9.6-12.3); MONO # 0.1 10*3/uL (0.1-1.0); MONO % 1.5 % (3.0-9.0); NEUT # 4.2 10*3/uL (2.3-7.9); NEUT % 80.1 % (47.0-73.0); PLATELET COUNT AUTOMATED 160 10*3/uL (130-400); RED BLOOD COUNT 4.48 10*6/uL (4.50-5.90); RED CELL DISTRI WIDTH 14.4 % (0-14.5); WHITE BLOOD COUNT 5.3 10*3/uL (4.8-10.8)
[2021-08-13 06:26] LABS: BUN 26 mg/dl (7-24); CHLORIDE 103 mmol/L (98-107); CREATININE 1.38 mg/dL (0.70-1.30); POTASSIUM 4.7 mmol/L (3.5-5.1); SGOT/AST 33 IU/L (3-35); SGPT/ALT 21 U/L (12-78); SODIUM 134 mmol/L (136-145)
[2021-08-13 06:34] LABS: ALKALINE PHOSPHATASE 94 U/L (45-117); FREE T4 1.15 ng/dl (0.76-1.46); TOTAL PROTEIN 7.6 gm/dL (6.4-8.2)
[2021-08-13 08:00] VITALS: BP 152/66
[2021-08-13 12:00] VITALS: BP 156/66
[2021-08-13 16:00] VITALS: BP 160/69
[2021-08-13 20:00] VITALS: BP 155/70
[2021-08-14] VITALS: BP 170/89
[2021-08-14 02:00] VITALS: BP 162/84
[2021-08-14 06:08] LABS: BASO % 0.1 % (0.0-1.0); EOS % 0.1 % (1.0-4.0); HEMATOCRIT 42.8 % (42.0-52.0); LYMPH # 1.1 10*3/uL (1.3-4.4); LYMPH % 14.4 % (27.0-41.0); MEAN CELL VOLUME 89.7 fl (80.0-94.0); MEAN CORPUSCULAR HGB 30.6 pg (27.0-31.0); MEAN CORPUSCULAR HGB CONC 34.1 g/dl (33.0-37.0); MEAN PLATELET VOLUME 10.5 fl (9.6-12.3); MONO # 0.2 10*3/uL (0.1-1.0); NEUT # 6.6 10*3/uL (2.3-7.9); NEUT % 82.9 % (47.0-73.0); PLATELET COUNT AUTOMATED 167 10*3/uL (130-400); RED BLOOD COUNT 4.77 10*6/uL (4.50-5.90); RED CELL DISTRI WIDTH 14.4 % (0-14.5); WHITE BLOOD COUNT 7.9 10*3/uL (4.8-10.8)
[2021-08-14 06:19] LABS: BUN 32 mg/dl (7-24); CHLORIDE 102 mmol/L (98-107); CREATININE 1.25 mg/dL (0.70-1.30); POTASSIUM 4.3 mmol/L (3.5-5.1); SODIUM 133 mmol/L (136-145)
[2021-08-14] MEDS ORDERED: CYCLOBENZAPRINE10 MG PO (11:00)
[2021-08-14] MEDS ORDERED: PREDNISONE10 MG PO (11:00)
== END 2021-08-14 12:22 | disposition home or self-care (01) ==
LOC: ED 22:02 → EDHOLD 08-13 00:48 → 4E 08-13 00:48 → EDHOLD 08-13 01:53 → 4E 08-13 02:01
PROVIDERS: Family Medicine; Student in an Organized Health Care Education/Training Program; ADMIT Internal Medicine; ATTEND Internal Medicine
DX: S39.012A Strain of muscle, fascia and tendon of lower back, initial encounter (principal); Z20.822 Contact with and (suspected) exposure to COVID-19; I48.21 Permanent atrial fibrillation; K44.9 Diaphragmatic hernia without obstruction or gangrene; R53.1 Weakness; E66.9 Obesity, unspecified; I10 Essential (primary) hypertension; E11.9 Type 2 diabetes mellitus without complications; F41.9 Anxiety disorder, unspecified; F32.9 Major depressive disorder, single episode, unspecified; G47.30 Sleep apnea, unspecified; M19.90 Unspecified osteoarthritis, unspecified site; D64.9 Anemia, unspecified; R26.81 Unsteadiness on feet; Z95.0 Presence of cardiac pacemaker; Z79.4 Long term (current) use of insulin; Z79.01 Long term (current) use of anticoagulants; Z79.899 Other long term (current) drug therapy; W19.XXXA Unspecified fall, initial encounter; Y92.89 Other specified places as the place of occurrence of the external cause; Y93.89 Activity, other specified

== ENCOUNTER 2021-10-26 17:20 | Emergency (ER) | payer OTHER ==
[~2021-10-26] VITALS: Ht 175.2 cm; Wt 101.2 kg
[2021-10-26 17:23] VITALS: BP 163/58
[2021-10-26 19:07] LABS: BASO % 0.3 % (0.0-1.0); EOS % 0.7 % (1.0-4.0); HEMATOCRIT 40.3 % (42.0-52.0); LYMPH # 1.1 10*3/uL (1.3-4.4); LYMPH % 18.7 % (27.0-41.0); MEAN CELL VOLUME 94.4 fl (80.0-94.0); MEAN CORPUSCULAR HGB 30.7 pg (27.0-31.0); MEAN CORPUSCULAR HGB CONC 32.5 g/dl (33.0-37.0); MEAN PLATELET VOLUME 10.3 fl (9.6-12.3); MONO # 0.5 10*3/uL (0.1-1.0); MONO % 7.8 % (3.0-9.0); NEUT # 4.2 10*3/uL (2.3-7.9); PLATELET COUNT AUTOMATED 143 10*3/uL (130-400); RED BLOOD COUNT 4.27 10*6/uL (4.50-5.90); RED CELL DISTRI WIDTH 14.6 % (0-14.5); WHITE BLOOD COUNT 5.9 10*3/uL (4.8-10.8)
[2021-10-26 19:23] LABS: CREATININE 1.57 mg/dL (0.70-1.30); POTASSIUM 4.3 mmol/L (3.5-5.1); TOTAL PROTEIN 7.3 gm/dL (6.4-8.2)
== END 2021-10-26 20:50 | disposition home or self-care (01) ==
LOC: ED 17:20
PROVIDERS: Nurse Practitioner Family
DX: U07.1 COVID-19 (principal); Z88.0 Allergy status to penicillin; Z79.899 Other long term (current) drug therapy

== ENCOUNTER 2022-03-29 14:46 | Emergency (ER) | payer OTHER ==
[~2022-03-29] VITALS: Ht 175.2 cm; Wt 101.6 kg
[2022-03-29 15:12] VITALS: BP 151/73
[2022-03-29] MEDS ORDERED: CYCLOBENZAPRINE10 MG PO (19:12)
== END 2022-03-29 19:22 | disposition home or self-care (01) ==
LOC: ED 14:46
DX: M54.41 Lumbago with sciatica, right side (principal); Z88.0 Allergy status to penicillin; Z79.01 Long term (current) use of anticoagulants; Z79.899 Other long term (current) drug therapy; Z79.4 Long term (current) use of insulin; Z95.0 Presence of cardiac pacemaker

== ENCOUNTER → 2022-10-19 | Outpatient (CLI) | payer OTHER | END | disposition home or self-care (01) | LOC: WOUNDCARE 01:35 | PROVIDERS: ATTEND Nurse Practitioner Family | DX: T81.31XA Disruption of external operation (surgical) wound, not elsewhere classified, initial encounter (principal); S21.302A Unspecified open wound of left front wall of thorax with penetration into thoracic cavity, initial encounter; E11.22 Type 2 diabetes mellitus with diabetic chronic kidney disease; I12.9 Hypertensive chronic kidney disease with stage 1 through stage 4 chronic kidney disease, or unspecified chronic kidney disease; N18.30 Chronic kidney disease, stage 3 unspecified; M19.90 Unspecified osteoarthritis, unspecified site; Z95.0 Presence of cardiac pacemaker; Z79.4 Long term (current) use of insulin; X58.XXXA Exposure to other specified factors, initial encounter; Y93.89 Activity, other specified; Y92.89 Other specified places as the place of occurrence of the external cause; Y99.8 Other external cause status; Y92.238 Other place in hospital as the place of occurrence of the external cause; Y83.8 Other surgical procedures as the cause of abnormal reaction of the patient, or of later complication, without mention of misadventure at the time of the procedure ==

== ENCOUNTER → 2022-10-28 | Outpatient (CLI) | payer OTHER | END | disposition home or self-care (01) | LOC: WOUNDCARE 13:03 | PROVIDERS: ATTEND Nurse Practitioner Family | DX: T81.89XD Other complications of procedures, not elsewhere classified, subsequent encounter (principal); S21.30 Unspecified open wound of front wall of thorax with penetration into thoracic cavity; E11.22 Type 2 diabetes mellitus with diabetic chronic kidney disease; I12.9 Hypertensive chronic kidney disease with stage 1 through stage 4 chronic kidney disease, or unspecified chronic kidney disease; N18.30 Chronic kidney disease, stage 3 unspecified; M19.90 Unspecified osteoarthritis, unspecified site; Z95.0 Presence of cardiac pacemaker; X58.XXXD Exposure to other specified factors, subsequent encounter; Y83.8 Other surgical procedures as the cause of abnormal reaction of the patient, or of later complication, without mention of misadventure at the time of the procedure ==

== ENCOUNTER → 2023-05-16 | Outpatient (CLI) | payer OTHER ==
[~2023-05-16] MED LIST changes: +ASPIRIN ADULT L81 M1 PO; +BRIMONIDINE TART5 ML OPH; +CELECOXIB200 MG PO; +COLCHICINE0.6 M2 PO; +DOXYCYCLINE HY100 M3 PO; +ELIQUIS5 M1 PO; +JARDIANCE25 MG PO; +LEVOFLOXACIN750 M2 PO; +MELATONIN3 MG PO; +MIRTAZAPINE30 M1 PO; +PREGABALIN75 MG PO; +REFRESH OPTIVE10 M1 OP; +ROPINIROLE HYDRO1 MG PO
[2023-05-16 10:59] LABS: BASO % 0.5 % (0.0-1.0); EOS # 0.1 10*3/uL (0.0-0.4); HEMATOCRIT 44.6 % (42.0-52.0); LYMPH # 1.6 10*3/uL (1.3-4.4); LYMPH % 25.5 % (27.0-41.0); MEAN CELL VOLUME 91.2 fl (80.0-94.0); MEAN CORPUSCULAR HGB 28.4 pg (27.0-31.0); MEAN CORPUSCULAR HGB CONC 31.2 g/dl (33.0-37.0); MEAN PLATELET VOLUME 10.1 fl (9.6-12.3); MONO # 0.4 10*3/uL (0.1-1.0); MONO % 6.6 % (3.0-9.0); NEUT # 4.1 10*3/uL (2.3-7.9); NEUT % 65.9 % (47.0-73.0); PLATELET COUNT AUTOMATED 171 10*3/uL (130-400); RED BLOOD COUNT 4.89 10*6/uL (4.50-5.90); WHITE BLOOD COUNT 6.2 10*3/uL (4.8-10.8)
[2023-05-16 11:43] LABS: ALKALINE PHOSPHATASE 94 U/L (46-116); BUN 21 mg/dl (9-23); CHLORIDE 103 mmol/L (98-107); POTASSIUM 4.5 mmol/L (3.4-5.1); SGPT/ALT 11 U/L (5-49); T3 UPTAKE 34.6 % (22.4-36.7); THYROXINE (T4) TOTAL 7.1 ug/dl (4.5-10.9)
[2023-05-16 11:45] LABS: TESTOSTERONE, TOTAL 458 ng/dL (113-882)
[2023-05-19 19:06] LABS: FREE PSA 0.244 ng/mL (.)
== END | disposition home or self-care (01) ==
LOC: LAB 10:30
PROVIDERS: ATTEND Urology
DX: D40.0 Neoplasm of uncertain behavior of prostate (principal); R53.82 Chronic fatigue, unspecified

== ENCOUNTER 2023-05-17 19:17 | Emergency (ER) | payer OTHER ==
[~2023-05-17] VITALS: Ht 175.2 cm; Wt 90.3 kg
[2023-05-17 19:36] VITALS: BP 129/76
== END 2023-05-17 20:29 | disposition left against medical advice (07) ==
LOC: ED 19:17
DX: Z95.0 Presence of cardiac pacemaker (principal); Z53.21 Procedure and treatment not carried out due to patient leaving prior to being seen by health care provider

== ENCOUNTER → 2023-05-23 | Outpatient (CLI) | payer OTHER | END | disposition home or self-care (01) | LOC: US 01:47 | PROVIDERS: ATTEND Urology | DX: N28.1 Cyst of kidney, acquired (principal); N43.3 Hydrocele, unspecified; N28.89 Other specified disorders of kidney and ureter ==

== ENCOUNTER 2023-06-20 17:41 | Emergency (ER) | payer OTHER ==
[~2023-06-20] VITALS: Ht 175.2 cm; Wt 91.6 kg
[2023-06-20 18:09] VITALS: BP 134/68
== END 2023-06-20 23:25 | disposition left against medical advice (07) ==
LOC: ED 17:41
DX: R35.0 Frequency of micturition (principal); R50.9 Fever, unspecified; Z88.0 Allergy status to penicillin; Z53.21 Procedure and treatment not carried out due to patient leaving prior to being seen by health care provider

== ENCOUNTER 2023-06-28 14:56 | Inpatient (IN) | payer OTHER ==
[~2023-06-28] VITALS: Ht 175.2 cm; Wt 78.0 kg
[~2023-06-28 14:56] MED LIST changes: -BRIMONIDINE TART5 ML OPH; +BRIMONIDINE TART5 ML OU; -LATANOPROST 2.2.5 ML OP; +LATANOPROST 2.2.5 ML OU; -REFRESH OPTIVE10 M1 OP; +REFRESH OPTIVE10 M1 OU
[2023-06-28 15:28] VITALS: BP 137/79
[2023-06-28 16:36] LABS: BASO % 0.3 % (0.0-1.0); EOS # 0.1 10*3/uL (0.0-0.4); EOS % 0.6 % (1.0-4.0); HEMATOCRIT 44.2 % (42.0-52.0); LYMPH % 10.1 % (27.0-41.0); MEAN CORPUSCULAR HGB 28.9 pg (27.0-31.0); MEAN CORPUSCULAR HGB CONC 33.3 g/dl (33.0-37.0); MEAN PLATELET VOLUME 10.7 fl (9.6-12.3); MONO # 0.5 10*3/uL (0.1-1.0); MONO % 5.2 % (3.0-9.0); NEUT % 81.6 % (47.0-73.0); PLATELET COUNT AUTOMATED 213 10*3/uL (130-400); RED BLOOD COUNT 5.08 10*6/uL (4.50-5.90); RED CELL DISTRI WIDTH 14.6 % (0-14.5); WHITE BLOOD COUNT 9.8 10*3/uL (4.8-10.8)
[2023-06-28 16:48] LABS: ACT PARTIAL THROMBO TIME 27.4 SECONDS (20.0-32.1)
[2023-06-28 17:03] LABS: TOTAL PROTEIN 8.3 gm/dL (6.0-8.0)
[2023-06-28 17:47] VITALS: BP 145/79
[2023-06-28 19:39] LABS: VENOUS PH 7.369 (7.37-7.45)
[2023-06-28 20:18] LABS: POTASSIUM 5.6 mmol/L (3.4-5.1)
[2023-06-28 21:20] VITALS: BP 110/71
[2023-06-29 00:57] LABS: POTASSIUM 4.6 mmol/L (3.4-5.1)
[2023-06-29 04:00] VITALS: BP 124/68
[2023-06-29 05:24] LABS: BUN 37 mg/dl (9-23); CHLORIDE 104 mmol/L (98-107); POTASSIUM 4.5 mmol/L (3.4-5.1)
[2023-06-29 05:28] LABS: ALKALINE PHOSPHATASE 103 U/L (46-116); BUN 41 mg/dl (9-23); CHLORIDE 104 mmol/L (98-107); CHOLESTEROL 105 mg/dL (<200); FREE T4 1.28 ng/dl (0.89-1.76); LDL CHOLESTEROL 45 mg/dL (9-159); POTASSIUM 4.7 mmol/L (3.4-5.1); SGPT/ALT 9 U/L (5-49); TOTAL PROTEIN 7.3 gm/dL (6.0-8.0); TRIGLYCERIDES 143 mg/dl (<150)
[2023-06-29 05:54] LABS: BASO # 0.1 10*3/uL (0.0-0.1); BASO % 0.5 % (0.0-1.0); EOS # 0.1 10*3/uL (0.0-0.4); EOS % 0.9 % (1.0-4.0); LYMPH # 1.3 10*3/uL (1.3-4.4); LYMPH % 10.2 % (27.0-41.0); MEAN CELL VOLUME 87.3 fl (80.0-94.0); MEAN CORPUSCULAR HGB 28.3 pg (27.0-31.0); MEAN CORPUSCULAR HGB CONC 32.4 g/dl (33.0-37.0); MEAN PLATELET VOLUME 9.9 fl (9.6-12.3); MONO # 0.7 10*3/uL (0.1-1.0); MONO % 5.2 % (3.0-9.0); NEUT # 10.5 10*3/uL (2.3-7.9); PLATELET COUNT AUTOMATED 202 10*3/uL (130-400); RED BLOOD COUNT 4.81 10*6/uL (4.50-5.90); RED CELL DISTRI WIDTH 14.6 % (0-14.5); WHITE BLOOD COUNT 12.9 10*3/uL (4.8-10.8)
[2023-06-29 07:36] VITALS: BP 130/65
[2023-06-29 08:50] LABS: BUN 38 mg/dl (9-23); CHLORIDE 106 mmol/L (98-107); POTASSIUM 4.5 mmol/L (3.4-5.1)
[2023-06-29] MEDS ORDERED: CELEBREX100 MG PO (09:51)
[2023-06-29] MEDS ORDERED: VIAGRA100 MG PO (09:57)
[2023-06-29] MEDS ORDERED: CRESTOR5 M1 PO (10:04)
[2023-06-29 12:00] VITALS: BP 107/61
[2023-06-29 16:00] VITALS: BP 122/72
[2023-06-29 20:00] VITALS: BP 119/53
[2023-06-30] VITALS: BP 115/66
[2023-06-30 06:15] LABS: BASO % 0.4 % (0.0-1.0); EOS # 0.1 10*3/uL (0.0-0.4); HEMATOCRIT 40.5 % (42.0-52.0); LYMPH # 1.8 10*3/uL (1.3-4.4); LYMPH % 18.2 % (27.0-41.0); MEAN CELL VOLUME 89.6 fl (80.0-94.0); MEAN CORPUSCULAR HGB 28.3 pg (27.0-31.0); MEAN CORPUSCULAR HGB CONC 31.6 g/dl (33.0-37.0); MEAN PLATELET VOLUME 10.6 fl (9.6-12.3); MONO # 0.6 10*3/uL (0.1-1.0); MONO % 6.1 % (3.0-9.0); NEUT # 7.1 10*3/uL (2.3-7.9); NEUT % 72.5 % (47.0-73.0); PLATELET COUNT AUTOMATED 161 10*3/uL (130-400); RED BLOOD COUNT 4.52 10*6/uL (4.50-5.90); RED CELL DISTRI WIDTH 15.1 % (0-14.5); WHITE BLOOD COUNT 9.8 10*3/uL (4.8-10.8)
[2023-06-30 06:53] LABS: ALKALINE PHOSPHATASE 94 U/L (46-116); BUN 31 mg/dl (9-23); CHLORIDE 107 mmol/L (98-107); POTASSIUM 4.4 mmol/L (3.4-5.1); SGPT/ALT 9 U/L (5-49); TOTAL PROTEIN 6.7 gm/dL (6.0-8.0); VALPROIC ACID (DEPAKENE) 18.3 ug/ml (50-100)
[2023-06-30 08:00] VITALS: BP 120/56
[2023-06-30 11:07] LABS: HEMOGOLBIN A1C >15.5 % (4.8-5.6)
[2023-06-30 11:58] VITALS: BP 107/48
[2023-06-30 16:00] VITALS: BP 93/75
[2023-06-30 20:00] VITALS: BP 125/71
[2023-07-01] VITALS: BP 113/63
[2023-07-01 04:58] LABS: BUN 28 mg/dl (9-23); CHLORIDE 109 mmol/L (98-107); POTASSIUM 4.3 mmol/L (3.4-5.1)
[2023-07-01 06:02] LABS: BASO % 0.4 % (0.0-1.0); EOS # 0.1 10*3/uL (0.0-0.4); EOS % 1.2 % (1.0-4.0); HEMATOCRIT 38.5 % (42.0-52.0); LYMPH # 1.5 10*3/uL (1.3-4.4); LYMPH % 19.6 % (27.0-41.0); MEAN CELL VOLUME 89.1 fl (80.0-94.0); MEAN CORPUSCULAR HGB 28.5 pg (27.0-31.0); MEAN CORPUSCULAR HGB CONC 31.9 g/dl (33.0-37.0); MEAN PLATELET VOLUME 10.3 fl (9.6-12.3); MONO # 0.5 10*3/uL (0.1-1.0); MONO % 6.1 % (3.0-9.0); NEUT # 5.6 10*3/uL (2.3-7.9); NEUT % 71.5 % (47.0-73.0); PLATELET COUNT AUTOMATED 165 10*3/uL (130-400); RED BLOOD COUNT 4.32 10*6/uL (4.50-5.90); RED CELL DISTRI WIDTH 15.2 % (0-14.5); WHITE BLOOD COUNT 7.8 10*3/uL (4.8-10.8)
[2023-07-01 08:00] VITALS: BP 131/69
[2023-07-01 12:00] VITALS: BP 107/60
[2023-07-01 12:07] LABS: HEMOGOLBIN A1C 15.4 % (4.8-5.6)
[2023-07-01] MEDS ORDERED: Humalog SQ (14:48)
[2023-07-01] MEDS ORDERED: DOXYCYCLINE HY100 M3 PO (14:48)
== END 2023-07-01 15:30 | disposition home health service (06) | DRG 177 ==
LOC: ED 14:56 → EDHOLD 17:14 → ICCU 17:14 → 5E 06-29 15:51
PROVIDERS: Emergency Medicine; Internal Medicine; Student in an Organized Health Care Education/Training Program; ADMIT Family Medicine; ATTEND Family Medicine
PROC: 5A09357 Assistance with Respiratory Ventilation, Less than 24 Consecutive Hours, Continuous Positive Airway Pressure (ICD-10-PCS; principal; 2023-06-29)
PROC: 5A09357 Assistance with Respiratory Ventilation, Less than 24 Consecutive Hours, Continuous Positive Airway Pressure (ICD-10-PCS; 2023-06-30)
DX: J69.0 Pneumonitis due to inhalation of food and vomit (principal); E11.00 Type 2 diabetes mellitus with hyperosmolarity without nonketotic hyperglycemic-hyperosmolar coma (NKHHC); E43 Unspecified severe protein-calorie malnutrition; N17.0 Acute kidney failure with tubular necrosis; J90 Pleural effusion, not elsewhere classified; E86.0 Dehydration; E11.65 Type 2 diabetes mellitus with hyperglycemia; E87.5 Hyperkalemia; I10 Essential (primary) hypertension; E11.69 Type 2 diabetes mellitus with other specified complication; G20.A1 Parkinson's disease without dyskinesia, without mention of fluctuations; G47.30 Sleep apnea, unspecified; Z95.0 Presence of cardiac pacemaker; Z82.49 Family history of ischemic heart disease and other diseases of the circulatory system; Z79.51 Long term (current) use of inhaled steroids; Z79.82 Long term (current) use of aspirin; Z79.4 Long term (current) use of insulin; Z79.899 Other long term (current) drug therapy; Z88.0 Allergy status to penicillin; Z68.25 Body mass index [BMI] 25.0-25.9, adult

== ENCOUNTER 2023-07-07 16:08 | Emergency (ER) | payer OTHER ==
[~2023-07-07] VITALS: Ht 175.2 cm; Wt 89.4 kg
[~2023-07-07 16:08] MED LIST changes: +CELEBREX100 MG PO; +CRESTOR5 M1 PO; +Humalog SQ; +VIAGRA100 MG PO
[2023-07-07 16:22] VITALS: BP 123/64
[2023-07-07 17:05] LABS: BILIRUBIN Negative (Negative); BLOOD 1+ (Negative); CLARITY Clear (Clear); COLOR Yellow (Yellow); GLUCOSE 3+ (Negative); KETONE 1+ (Negative); LEUKO ESTERASE Negative (Negative); NITRITE Negative (Negative); SPECIFIC GRAVITY >= 1.030 (1.001-1.030)
[2023-07-07 17:33] LABS: BASO % 0.4 % (0.0-1.0); EOS % 0.5 % (1.0-4.0); HEMATOCRIT 38.7 % (42.0-52.0); LYMPH # 1.4 10*3/uL (1.3-4.4); LYMPH % 18.7 % (27.0-41.0); MEAN CELL VOLUME 90.4 fl (80.0-94.0); MEAN CORPUSCULAR HGB 28.5 pg (27.0-31.0); MEAN CORPUSCULAR HGB CONC 31.5 g/dl (33.0-37.0); MEAN PLATELET VOLUME 9.6 fl (9.6-12.3); MONO # 0.5 10*3/uL (0.1-1.0); NEUT # 5.5 10*3/uL (2.3-7.9); NEUT % 72.9 % (47.0-73.0); PLATELET COUNT AUTOMATED 161 10*3/uL (130-400); RED BLOOD COUNT 4.28 10*6/uL (4.50-5.90); RED CELL DISTRI WIDTH 15.5 % (0-14.5); WHITE BLOOD COUNT 7.5 10*3/uL (4.8-10.8)
[2023-07-07 17:34] LABS: VENOUS PH 7.394 (7.37-7.45)
[2023-07-07 17:36] LABS: BACTERIA 2+
[2023-07-07 18:10] LABS: ALKALINE PHOSPHATASE 83 U/L (46-116); BUN 27 mg/dl (9-23); CHLORIDE 103 mmol/L (98-107); POTASSIUM 4.6 mmol/L (3.4-5.1); SGPT/ALT 9 U/L (5-49); TOTAL PROTEIN 6.9 gm/dL (6.0-8.0)
[2023-07-07] MEDS ORDERED: CLINDAMYCIN HC300 MG PO (18:34)
== END 2023-07-07 18:44 | disposition home or self-care (01) ==
LOC: ED 16:08
PROVIDERS: Emergency Medicine; Nurse Practitioner
DX: N39.0 Urinary tract infection, site not specified (principal); I10 Essential (primary) hypertension; E11.65 Type 2 diabetes mellitus with hyperglycemia; F41.9 Anxiety disorder, unspecified; F32.A Depression, unspecified; E11.40 Type 2 diabetes mellitus with diabetic neuropathy, unspecified; I48.91 Unspecified atrial fibrillation; Z88.0 Allergy status to penicillin; Z98.890 Other specified postprocedural states; Z95.5 Presence of coronary angioplasty implant and graft

== ENCOUNTER → 2023-07-27 | Outpatient (CLI) | payer OTHER | END | disposition home or self-care (01) | LOC: RAD 11:09 | PROVIDERS: ATTEND Urology | DX: J98.4 Other disorders of lung (principal); J18.9 Pneumonia, unspecified organism ==

== ENCOUNTER → 2023-10-06 | Outpatient (CLI) | payer OTHER | END | disposition home or self-care (01) | LOC: CARD 00:03 | PROVIDERS: ATTEND Internal Medicine Cardiovascular Disease | DX: Z01.810 Encounter for preprocedural cardiovascular examination (principal); I25.10 Atherosclerotic heart disease of native coronary artery without angina pectoris; Z95.1 Presence of aortocoronary bypass graft ==

== ENCOUNTER 2023-11-04 07:45 | Emergency (ER) | payer OTHER ==
[~2023-11-04] VITALS: Ht 175.2 cm; Wt 95.3 kg
[2023-11-04] MEDS ORDERED: Lidocaine Hydrochloride 5 ML AMP SC ONE (08:45)
[2023-11-04 09:41] VITALS: BP 123/62
[2023-11-05] MEDS ORDERED: LIDOCAINE 4% PATCH T SCH
== END 2023-11-04 10:19 | disposition home or self-care (01) ==
LOC: ED 07:45
DX: N99.820 Postprocedural hemorrhage of a genitourinary system organ or structure following a genitourinary system procedure (principal); I25.10 Atherosclerotic heart disease of native coronary artery without angina pectoris; E11.9 Type 2 diabetes mellitus without complications; I10 Essential (primary) hypertension; E78.5 Hyperlipidemia, unspecified; Z88.0 Allergy status to penicillin; Z79.2 Long term (current) use of antibiotics; Z79.4 Long term (current) use of insulin; Z79.82 Long term (current) use of aspirin; Z79.899 Other long term (current) drug therapy; Z95.0 Presence of cardiac pacemaker; Y83.8 Other surgical procedures as the cause of abnormal reaction of the patient, or of later complication, without mention of misadventure at the time of the procedure

== ENCOUNTER → 2024-08-15 | Outpatient (CLI) | payer OTHER ==
[~2024-08-15] MED LIST changes: +DOXYCYCLINE MO100 MG PO; +NOVOLIN N100 UNIT/1 SQ; +VIBRA-TAB100 MG PO
== END | disposition home or self-care (01) ==
LOC: WOUNDCARE 10:26
PROVIDERS: ATTEND Nurse Practitioner Family
DX: T81.89XD Other complications of procedures, not elsewhere classified, subsequent encounter (principal); S21.30 Unspecified open wound of front wall of thorax with penetration into thoracic cavity; I12.9 Hypertensive chronic kidney disease with stage 1 through stage 4 chronic kidney disease, or unspecified chronic kidney disease; E11.22 Type 2 diabetes mellitus with diabetic chronic kidney disease; N18.30 Chronic kidney disease, stage 3 unspecified; M19.90 Unspecified osteoarthritis, unspecified site; Z95.0 Presence of cardiac pacemaker; Z98.890 Other specified postprocedural states; Z79.84 Long term (current) use of oral hypoglycemic drugs; Z79.82 Long term (current) use of aspirin; Z79.899 Other long term (current) drug therapy; X58.XXXD Exposure to other specified factors, subsequent encounter; Y83.8 Other surgical procedures as the cause of abnormal reaction of the patient, or of later complication, without mention of misadventure at the time of the procedure

== ENCOUNTER → 2024-08-22 | Outpatient (CLI) | payer OTHER | END | disposition home or self-care (01) | LOC: WOUNDCARE 04:01 | PROVIDERS: ATTEND Nurse Practitioner Family | DX: T81.89XD Other complications of procedures, not elsewhere classified, subsequent encounter (principal); S21.30 Unspecified open wound of front wall of thorax with penetration into thoracic cavity; E11.22 Type 2 diabetes mellitus with diabetic chronic kidney disease; I12.9 Hypertensive chronic kidney disease with stage 1 through stage 4 chronic kidney disease, or unspecified chronic kidney disease; N18.30 Chronic kidney disease, stage 3 unspecified; M19.90 Unspecified osteoarthritis, unspecified site; Z95.0 Presence of cardiac pacemaker; Z98.890 Other specified postprocedural states; Z79.4 Long term (current) use of insulin; Z79.82 Long term (current) use of aspirin; Z79.899 Other long term (current) drug therapy; X58.XXXD Exposure to other specified factors, subsequent encounter; Y83.8 Other surgical procedures as the cause of abnormal reaction of the patient, or of later complication, without mention of misadventure at the time of the procedure ==

== ENCOUNTER → 2024-08-30 | Outpatient (CLI) | payer OTHER | END | disposition home or self-care (01) | LOC: WOUNDCARE 03:13 | PROVIDERS: ATTEND Nurse Practitioner Family | DX: T81.89XD Other complications of procedures, not elsewhere classified, subsequent encounter (principal); S21.30 Unspecified open wound of front wall of thorax with penetration into thoracic cavity; I12.9 Hypertensive chronic kidney disease with stage 1 through stage 4 chronic kidney disease, or unspecified chronic kidney disease; E11.22 Type 2 diabetes mellitus with diabetic chronic kidney disease; N18.30 Chronic kidney disease, stage 3 unspecified; M19.90 Unspecified osteoarthritis, unspecified site; Z86.19 Personal history of other infectious and parasitic diseases; Z95.0 Presence of cardiac pacemaker; Z98.890 Other specified postprocedural states; Z79.82 Long term (current) use of aspirin; Z79.4 Long term (current) use of insulin; Z79.899 Other long term (current) drug therapy; X58.XXXD Exposure to other specified factors, subsequent encounter; Y83.8 Other surgical procedures as the cause of abnormal reaction of the patient, or of later complication, without mention of misadventure at the time of the procedure ==

== ENCOUNTER → 2024-09-06 | Outpatient (CLI) | payer OTHER ==
[~2024-09-06] MED LIST changes: +DULOXETINE HCL30 MG PO; +MIRTAZAPINE15 M2 PO
== END | disposition home or self-care (01) ==
LOC: WOUNDCARE 02:16
PROVIDERS: ATTEND Nurse Practitioner Family
DX: S21.30 Unspecified open wound of front wall of thorax with penetration into thoracic cavity (principal); I12.9 Hypertensive chronic kidney disease with stage 1 through stage 4 chronic kidney disease, or unspecified chronic kidney disease; E11.22 Type 2 diabetes mellitus with diabetic chronic kidney disease; N18.30 Chronic kidney disease, stage 3 unspecified; M19.90 Unspecified osteoarthritis, unspecified site; Z95.0 Presence of cardiac pacemaker; Z98.890 Other specified postprocedural states; Z79.4 Long term (current) use of insulin; Z79.82 Long term (current) use of aspirin; Z79.899 Other long term (current) drug therapy; X58.XXXD Exposure to other specified factors, subsequent encounter

== ENCOUNTER → 2024-09-20 | Outpatient (CLI) | payer OTHER | END | disposition home or self-care (01) | LOC: WOUNDCARE 01:40 | PROVIDERS: ATTEND Nurse Practitioner Family | DX: T81.89XD Other complications of procedures, not elsewhere classified, subsequent encounter (principal); S21.30 Unspecified open wound of front wall of thorax with penetration into thoracic cavity; I12.9 Hypertensive chronic kidney disease with stage 1 through stage 4 chronic kidney disease, or unspecified chronic kidney disease; E11.22 Type 2 diabetes mellitus with diabetic chronic kidney disease; N18.30 Chronic kidney disease, stage 3 unspecified; M19.90 Unspecified osteoarthritis, unspecified site; Z95.0 Presence of cardiac pacemaker; Z95.2 Presence of prosthetic heart valve; Z86.19 Personal history of other infectious and parasitic diseases; Z98.890 Other specified postprocedural states; Z79.82 Long term (current) use of aspirin; Z79.4 Long term (current) use of insulin; Z79.899 Other long term (current) drug therapy; X58.XXXD Exposure to other specified factors, subsequent encounter; Y83.8 Other surgical procedures as the cause of abnormal reaction of the patient, or of later complication, without mention of misadventure at the time of the procedure ==

== ENCOUNTER → 2024-10-03 | Outpatient (CLI) | payer OTHER | END | disposition home or self-care (01) | LOC: WOUNDCARE 04:16 | PROVIDERS: ATTEND Nurse Practitioner Family | DX: T81.89XD Other complications of procedures, not elsewhere classified, subsequent encounter (principal); S21.30 Unspecified open wound of front wall of thorax with penetration into thoracic cavity; I10 Essential (primary) hypertension; I12.9 Hypertensive chronic kidney disease with stage 1 through stage 4 chronic kidney disease, or unspecified chronic kidney disease; E11.22 Type 2 diabetes mellitus with diabetic chronic kidney disease; N18.30 Chronic kidney disease, stage 3 unspecified; M19.90 Unspecified osteoarthritis, unspecified site; Z86.19 Personal history of other infectious and parasitic diseases; Z95.0 Presence of cardiac pacemaker; Z98.890 Other specified postprocedural states; Z79.82 Long term (current) use of aspirin; Z79.899 Other long term (current) drug therapy; X58.XXXD Exposure to other specified factors, subsequent encounter; Y83.8 Other surgical procedures as the cause of abnormal reaction of the patient, or of later complication, without mention of misadventure at the time of the procedure ==

== ENCOUNTER → 2024-10-10 | Outpatient (CLI) | payer OTHER | END | disposition home or self-care (01) | LOC: WOUNDCARE 03:01 → LAB 04:36 → WOUNDCARE 04:36 | PROVIDERS: ATTEND Nurse Practitioner Family | DX: T81.89XD Other complications of procedures, not elsewhere classified, subsequent encounter (principal); S21.30 Unspecified open wound of front wall of thorax with penetration into thoracic cavity; E11.622 Type 2 diabetes mellitus with other skin ulcer; L98.491 Non-pressure chronic ulcer of skin of other sites limited to breakdown of skin; I12.9 Hypertensive chronic kidney disease with stage 1 through stage 4 chronic kidney disease, or unspecified chronic kidney disease; E11.22 Type 2 diabetes mellitus with diabetic chronic kidney disease; N18.30 Chronic kidney disease, stage 3 unspecified; M19.90 Unspecified osteoarthritis, unspecified site; Z95.0 Presence of cardiac pacemaker; Z12.5 Encounter for screening for malignant neoplasm of prostate; Z98.890 Other specified postprocedural states; Z79.4 Long term (current) use of insulin; Z79.899 Other long term (current) drug therapy; X58.XXXD Exposure to other specified factors, subsequent encounter; Y83.8 Other surgical procedures as the cause of abnormal reaction of the patient, or of later complication, without mention of misadventure at the time of the procedure ==

== ENCOUNTER → 2024-10-16 | Outpatient (CLI) | payer OTHER | END | disposition home or self-care (01) | LOC: WOUNDCARE 01:59 | PROVIDERS: ATTEND Nurse Practitioner Family | DX: T81.89XD Other complications of procedures, not elsewhere classified, subsequent encounter (principal); E11.622 Type 2 diabetes mellitus with other skin ulcer; L98.492 Non-pressure chronic ulcer of skin of other sites with fat layer exposed; S21.30 Unspecified open wound of front wall of thorax with penetration into thoracic cavity; E11.22 Type 2 diabetes mellitus with diabetic chronic kidney disease; I12.9 Hypertensive chronic kidney disease with stage 1 through stage 4 chronic kidney disease, or unspecified chronic kidney disease; N18.30 Chronic kidney disease, stage 3 unspecified; B15.9 Hepatitis A without hepatic coma; M19.90 Unspecified osteoarthritis, unspecified site; Z95.0 Presence of cardiac pacemaker; Z98.890 Other specified postprocedural states; Z79.82 Long term (current) use of aspirin; Z79.4 Long term (current) use of insulin; Z79.899 Other long term (current) drug therapy; X58.XXXD Exposure to other specified factors, subsequent encounter; Y83.8 Other surgical procedures as the cause of abnormal reaction of the patient, or of later complication, without mention of misadventure at the time of the procedure ==

== ENCOUNTER → 2024-10-23 | Outpatient (CLI) | payer OTHER | END | disposition home or self-care (01) | LOC: WOUNDCARE 02:26 | PROVIDERS: ATTEND Nurse Practitioner Family | DX: T81.89XD Other complications of procedures, not elsewhere classified, subsequent encounter (principal); S21.30 Unspecified open wound of front wall of thorax with penetration into thoracic cavity; E11.22 Type 2 diabetes mellitus with diabetic chronic kidney disease; I12.9 Hypertensive chronic kidney disease with stage 1 through stage 4 chronic kidney disease, or unspecified chronic kidney disease; N18.30 Chronic kidney disease, stage 3 unspecified; M19.90 Unspecified osteoarthritis, unspecified site; Z95.0 Presence of cardiac pacemaker; Z98.890 Other specified postprocedural states; Z79.82 Long term (current) use of aspirin; Z79.4 Long term (current) use of insulin; Z79.899 Other long term (current) drug therapy; X58.XXXD Exposure to other specified factors, subsequent encounter; Y83.8 Other surgical procedures as the cause of abnormal reaction of the patient, or of later complication, without mention of misadventure at the time of the procedure ==

== ENCOUNTER → 2024-11-02 | Outpatient (CLI) | payer OTHER | LOC: WOUNDCARE 01:19 | PROVIDERS: ATTEND Nurse Practitioner Family | DX: T81.89XD Other complications of procedures, not elsewhere classified, subsequent encounter (principal); E11.622 Type 2 diabetes mellitus with other skin ulcer; L98.491 Non-pressure chronic ulcer of skin of other sites limited to breakdown of skin; S21.30 Unspecified open wound of front wall of thorax with penetration into thoracic cavity; E11.22 Type 2 diabetes mellitus with diabetic chronic kidney disease; I12.9 Hypertensive chronic kidney disease with stage 1 through stage 4 chronic kidney disease, or unspecified chronic kidney disease; N18.30 Chronic kidney disease, stage 3 unspecified; M19.90 Unspecified osteoarthritis, unspecified site; Z95.0 Presence of cardiac pacemaker; Z86.19 Personal history of other infectious and parasitic diseases; Z98.890 Other specified postprocedural states; Z79.4 Long term (current) use of insulin; Z79.82 Long term (current) use of aspirin; Z79.899 Other long term (current) drug therapy; X58.XXXD Exposure to other specified factors, subsequent encounter; Y83.8 Other surgical procedures as the cause of abnormal reaction of the patient, or of later complication, without mention of misadventure at the time of the procedure ==

== ENCOUNTER 2024-11-07 07:42 | Emergency (ER) | payer OTHER ==
[~2024-11-07] VITALS: Ht 175.2 cm; Wt 101.6 kg
[2024-11-07 07:50] VITALS: BP 159/126
[2024-11-07] MEDS ORDERED: Lidocaine Hydrochloride 15 ML UDC T ONE (08:05)
[2024-11-07] MEDS ORDERED: Phenylephrine HydrochloridE 0.5% NASAL 15 ML BOTTLE NAS ONE (08:10)
== END 2024-11-07 09:04 | disposition home or self-care (01) ==
LOC: ED 07:42
DX: R04.0 Epistaxis (principal); Z79.01 Long term (current) use of anticoagulants; I10 Essential (primary) hypertension; E11.9 Type 2 diabetes mellitus without complications; F32.A Depression, unspecified; F41.9 Anxiety disorder, unspecified; Z79.82 Long term (current) use of aspirin; Z79.4 Long term (current) use of insulin; Z79.899 Other long term (current) drug therapy; Z88.0 Allergy status to penicillin; Z98.890 Other specified postprocedural states

== ENCOUNTER → 2024-11-07 | Outpatient (CLI) | payer OTHER | END | disposition home or self-care (01) | LOC: WOUNDCARE 00:41 | PROVIDERS: ATTEND Nurse Practitioner Family | DX: T81.89XD Other complications of procedures, not elsewhere classified, subsequent encounter (principal); E11.622 Type 2 diabetes mellitus with other skin ulcer; L98.492 Non-pressure chronic ulcer of skin of other sites with fat layer exposed; S21.30 Unspecified open wound of front wall of thorax with penetration into thoracic cavity; E11.22 Type 2 diabetes mellitus with diabetic chronic kidney disease; I12.9 Hypertensive chronic kidney disease with stage 1 through stage 4 chronic kidney disease, or unspecified chronic kidney disease; N18.30 Chronic kidney disease, stage 3 unspecified; M19.90 Unspecified osteoarthritis, unspecified site; Z95.0 Presence of cardiac pacemaker; Z86.19 Personal history of other infectious and parasitic diseases; Z98.890 Other specified postprocedural states; Z79.4 Long term (current) use of insulin; Z79.82 Long term (current) use of aspirin; Z79.899 Other long term (current) drug therapy; X58.XXXD Exposure to other specified factors, subsequent encounter; Y83.8 Other surgical procedures as the cause of abnormal reaction of the patient, or of later complication, without mention of misadventure at the time of the procedure ==

== ENCOUNTER 2024-11-09 09:53 | Emergency (ER) | payer OTHER ==
[~2024-11-09] VITALS: Ht 175.2 cm; Wt 109.3 kg
[2024-11-09 10:09] VITALS: BP 138/75
== END 2024-11-09 10:57 | disposition home or self-care (01) ==
LOC: ED 09:53
DX: R04.0 Epistaxis (principal); Z48.00 Encounter for change or removal of nonsurgical wound dressing; J44.9 Chronic obstructive pulmonary disease, unspecified; I48.91 Unspecified atrial fibrillation; I12.9 Hypertensive chronic kidney disease with stage 1 through stage 4 chronic kidney disease, or unspecified chronic kidney disease; N18.9 Chronic kidney disease, unspecified; Z88.0 Allergy status to penicillin; Z79.899 Other long term (current) drug therapy; Z79.82 Long term (current) use of aspirin; Z79.4 Long term (current) use of insulin; Z95.0 Presence of cardiac pacemaker

== ENCOUNTER → 2024-11-14 | Outpatient (CLI) | payer OTHER | END | disposition home or self-care (01) | LOC: WOUNDCARE 01:20 | PROVIDERS: ATTEND Nurse Practitioner Family | DX: T81.89XD Other complications of procedures, not elsewhere classified, subsequent encounter (principal); S21.30 Unspecified open wound of front wall of thorax with penetration into thoracic cavity; I12.9 Hypertensive chronic kidney disease with stage 1 through stage 4 chronic kidney disease, or unspecified chronic kidney disease; E11.22 Type 2 diabetes mellitus with diabetic chronic kidney disease; N18.30 Chronic kidney disease, stage 3 unspecified; M19.90 Unspecified osteoarthritis, unspecified site; Z95.0 Presence of cardiac pacemaker; Z98.890 Other specified postprocedural states; B15.9 Hepatitis A without hepatic coma; Z79.4 Long term (current) use of insulin; Z79.82 Long term (current) use of aspirin; Z79.899 Other long term (current) drug therapy; X58.XXXD Exposure to other specified factors, subsequent encounter; Y83.8 Other surgical procedures as the cause of abnormal reaction of the patient, or of later complication, without mention of misadventure at the time of the procedure ==

== ENCOUNTER → 2024-11-28 | Outpatient (CLI) | payer OTHER | END | disposition home or self-care (01) | LOC: WOUNDCARE 01:36 | PROVIDERS: ATTEND Nurse Practitioner Family | DX: T81.89XD Other complications of procedures, not elsewhere classified, subsequent encounter (principal); S21.30 Unspecified open wound of front wall of thorax with penetration into thoracic cavity; I12.9 Hypertensive chronic kidney disease with stage 1 through stage 4 chronic kidney disease, or unspecified chronic kidney disease; E11.22 Type 2 diabetes mellitus with diabetic chronic kidney disease; N18.30 Chronic kidney disease, stage 3 unspecified; M19.90 Unspecified osteoarthritis, unspecified site; Z86.19 Personal history of other infectious and parasitic diseases; Z95.0 Presence of cardiac pacemaker; Z98.890 Other specified postprocedural states; Z79.4 Long term (current) use of insulin; Z79.82 Long term (current) use of aspirin; Z79.899 Other long term (current) drug therapy; X58.XXXD Exposure to other specified factors, subsequent encounter; Y83.8 Other surgical procedures as the cause of abnormal reaction of the patient, or of later complication, without mention of misadventure at the time of the procedure ==

== ENCOUNTER → 2024-12-12 | Outpatient (CLI) | payer OTHER | END | disposition home or self-care (01) | LOC: WOUNDCARE 02:20 | PROVIDERS: ATTEND Nurse Practitioner Family | DX: T81.89XD Other complications of procedures, not elsewhere classified, subsequent encounter (principal); S21.30 Unspecified open wound of front wall of thorax with penetration into thoracic cavity; I12.9 Hypertensive chronic kidney disease with stage 1 through stage 4 chronic kidney disease, or unspecified chronic kidney disease; E11.22 Type 2 diabetes mellitus with diabetic chronic kidney disease; N18.30 Chronic kidney disease, stage 3 unspecified; M19.90 Unspecified osteoarthritis, unspecified site; Z95.0 Presence of cardiac pacemaker; Z86.19 Personal history of other infectious and parasitic diseases; Z98.890 Other specified postprocedural states; Z79.4 Long term (current) use of insulin; Z79.82 Long term (current) use of aspirin; Z79.899 Other long term (current) drug therapy; X58.XXXD Exposure to other specified factors, subsequent encounter; Y83.8 Other surgical procedures as the cause of abnormal reaction of the patient, or of later complication, without mention of misadventure at the time of the procedure ==

== ENCOUNTER 2024-12-23 11:51 | Emergency (ER) | payer OTHER ==
[2024-12-23] MEDS ORDERED: Naloxone Hydrochloride 0.4 MG/ML VIAL IV ONE ×3 (12:05→13:00)
[2024-12-23 12:28] LABS: BASO # 0.0 10*3/uL (0.0-0.1); BASO % 0.6 % (0.0-1.0); EOS # 0.1 10*3/uL (0.0-0.4); EOS % 1.6 % (1.0-4.0); MEAN CELL VOLUME 89.4 fl (80.0-94.0); MEAN CORPUSCULAR HGB 28.3 pg (27.0-31.0); MEAN PLATELET VOLUME 10.0 fl (9.6-12.3); MONO # 0.4 10*3/uL (0.1-1.0); MONO % 6.0 % (3.0-9.0); NEUT # 4.8 10*3/uL (2.3-7.9); NEUT % 70.2 % (47.0-73.0); NUCLEATED RED BLOOD CELL 0.0 % (0.0-0.0); NUCLEATED RED BLOOD CELL 0.0 10*3/uL (0.0-0.0); PLATELET COUNT AUTOMATED 140 10*3/uL (130-400); RED CELL DISTRI WIDTH 15.7 % (0-14.5)
[2024-12-23 12:30] LABS: BILIRUBIN Negative (Negative); BLOOD Negative (Negative); CLARITY Clear (Clear); COLOR Yellow (Yellow); KETONE Negative (Negative); LEUKO ESTERASE Negative (Negative); NITRITE Negative (Negative); PH 5.5 (4.5-8.0); SPECIFIC GRAVITY 1.020 (1.001-1.030); UROBILINOGEN 0.2 E.U./dl (0.0-1.0)
[2024-12-23 12:39] LABS: BACTERIA 1+; RBC 0-2 rbc/hpf (0-2); WBC 0-2 wbc/hpf (0-5); YEAST TRACE
[2024-12-23 12:39] LABS: ACT PARTIAL THROMBO TIME 26.0 SECONDS (20.0-32.1)
[2024-12-23 12:52] LABS: BUN 38 mg/dl (9-23); CPK 157 U/L (34-171); SGPT/ALT 17 U/L (5-49)
[2024-12-23 12:53] LABS: ETHYL ALCOHOL < 3.0 mg/dl (<3)
[2024-12-23] MEDS ORDERED: SODIUM CHLORIDE 0.9% 1,000 ML IV ONE (13:00)
[2024-12-23] MEDS ORDERED: Naloxone Hydrochloride 0.4 MG/ML VIAL ONE (13:00)
[2024-12-23 13:01] LABS: URINE AMPHETAMINES Negative (1000ng/ml); URINE BARBITURATES Negative (200ng/ml); URINE BENZODIAZEPINES Negative (200ng/ml); URINE CANNABINOIDS (THC) Negative (50ng/ml); URINE COCAINE Negative (300ng/ml); URINE METHADONE Negative (300ng/ml); URINE OPIATES Negative (300ng/ml); URINE PHENCYCLIDINE Negative (25ng/ml)
[2024-12-23 19:30] VITALS: BP 154/64
== END 2024-12-23 19:31 | disposition home or self-care (01) ==
LOC: ED 11:51
PROVIDERS: Nurse Practitioner Family
DX: T40.411A Poisoning by fentanyl or fentanyl analogs, accidental (unintentional), initial encounter (principal); I48.91 Unspecified atrial fibrillation; E11.40 Type 2 diabetes mellitus with diabetic neuropathy, unspecified; I25.10 Atherosclerotic heart disease of native coronary artery without angina pectoris; M19.90 Unspecified osteoarthritis, unspecified site; Z86.73 Personal history of transient ischemic attack (TIA), and cerebral infarction without residual deficits; Z88.0 Allergy status to penicillin; Z79.899 Other long term (current) drug therapy; Z79.82 Long term (current) use of aspirin; Z79.4 Long term (current) use of insulin; Z95.0 Presence of cardiac pacemaker; Y92.89 Other specified places as the place of occurrence of the external cause; E11.65 Type 2 diabetes mellitus with hyperglycemia; I13.10 Hypertensive heart and chronic kidney disease without heart failure, with stage 1 through stage 4 chronic kidney disease, or unspecified chronic kidney disease; E11.22 Type 2 diabetes mellitus with diabetic chronic kidney disease; N18.30 Chronic kidney disease, stage 3 unspecified

== ENCOUNTER 2025-04-01 09:37 | Inpatient (IN) | payer OTHER ==
[2025-04-01] VITALS (12 sets, daily range): BP systolic 89–126; BP diastolic 43–80
[~2025-04-01] VITALS: Ht 175.3 cm
[2025-04-01] MEDS ORDERED: ACETAMINOPHEN 100 ML IV ONE ×2 (09:45→16:40)
[2025-04-01] MEDS ORDERED: SODIUM CHLORIDE 0.9% 1,000 ML IV ONE ×6 (09:45→22:30)
[2025-04-01 09:55] LABS: BILIRUBIN Negative (Negative); BLOOD 2+ (Negative); CLARITY Clear (Clear); COLOR Yellow (Yellow); KETONE 2+ (Negative); LEUKO ESTERASE Negative (Negative); NITRITE Negative (Negative); PH 5.5 (4.5-8.0); SPECIFIC GRAVITY >= 1.030 (1.001-1.030); UROBILINOGEN 0.2 E.U./dl (0.0-1.0)
[2025-04-01 10:02] LABS: BACTERIA 2+; MUCOUS TRACE; RBC 21-30 rbc/hpf (0-2)
[2025-04-01 10:04] LABS: URINE AMPHETAMINES Negative (1000ng/ml); URINE BARBITURATES Negative (200ng/ml); URINE BENZODIAZEPINES Negative (200ng/ml); URINE CANNABINOIDS (THC) Negative (50ng/ml); URINE COCAINE Negative (300ng/ml); URINE METHADONE Negative (300ng/ml); URINE OPIATES Negative (300ng/ml); URINE PHENCYCLIDINE Negative (25ng/ml)
[2025-04-01 10:11] LABS: MEAN CELL VOLUME 92.6 fl (80.0-94.0); MEAN CORPUSCULAR HGB 30.7 pg (27.0-31.0); MEAN PLATELET VOLUME 10.5 fl (9.6-12.3); NUCLEATED RED BLOOD CELL 0.1 10*3/uL (0.0-0.0); NUCLEATED RED BLOOD CELL 0.2 % (0.0-0.0); PLATELET COUNT AUTOMATED 287 10*3/uL (130-400); RED CELL DISTRI WIDTH 14.6 % (0-14.5)
[2025-04-01 10:12] LABS: MANUAL DIFF REFLEX YES
[2025-04-01 10:15] LABS: VENOUS BLOOD GAS O2 SAT 77.8 % (60.0-85.0)
[2025-04-01 10:32] LABS: BASOPHILS 2 % (0-1)
[2025-04-01 10:33] LABS: PLATELET SUFFICIENCY NORMAL (NORMAL)
[2025-04-01 10:46] LABS: BUN 39.0 mg/dl (9-23); CPK 191.0 U/L (34-171)
[2025-04-01] MEDS ORDERED: AZITHROMYCIN 250 ML IV ONE (10:55)
[2025-04-01] MEDS ORDERED: INSULIN REGULAR, HUMAN 1 UNIT/0.01 ML IV ONE (10:55)
[2025-04-01] MEDS ORDERED: PROPOFOL 50 ML IV SCH (10:55)
[2025-04-01] MEDS ORDERED: ETOMIDATE 20 MG/10 ML VIAL IV ONE ×2 (11:20→16:22)
[2025-04-01] MEDS ORDERED: BISACODYL 10 MG SUPP R PRN (13:05)
[2025-04-01] MEDS ORDERED: ACETAMINOPHEN 650 MG SUPP R PRN (13:05)
[2025-04-01] MEDS ORDERED: INSULIN REGULAR IN 0.9 % NACL 100 ML IV SCH (13:10)
[2025-04-01] MEDS ORDERED: POTASSIUM CHLORIDE 20 MEQ/100 ML BAG IV PRN (13:10)
[2025-04-01] MEDS ORDERED: POTASSIUM CHLORIDE 20 MEQ TAB PO PRN (13:10)
[2025-04-01 16:15] LABS: BUN 52.0 mg/dl (9-23)
[2025-04-01] MEDS ORDERED: ACETAMINOPHEN 325 MG TAB PO PRN (16:20)
[2025-04-01 16:35] LABS: ABG O2 SATURATION 99.5 % (94.0-98.0); ARTERIAL BLOOD GAS PH 7.273 (7.350-7.450)
[2025-04-01 16:36] LABS: ABG BASE EXCESS -9.0 mmol/L (-2.0-3.0)
[2025-04-01 16:39] LABS: ARTERIAL BLOOD GAS PO2 326.3 mmHg (83.0-108.0)
[2025-04-01] MEDS ORDERED: Cefepime Hydrochloride 2 GM in SODIUM CHLORIDE 0.9% 50 ML IV SCH (17:00)
[2025-04-01 17:59] LABS: BUN 57.0 mg/dl (9-23)
[2025-04-01] MEDS ORDERED: VANCOMYCIN/WATER FOR INJ (PEG) 300 ML IV SCH (18:00)
[2025-04-01 21:19] LABS: BASO # 0.0 10*3/uL (0.0-0.1); BASO % 0.2 % (0.0-1.0); EOS # 0.0 10*3/uL (0.0-0.4); EOS % 0.0 % (1.0-4.0); MEAN CELL VOLUME 90.2 fl (80.0-94.0); MEAN CORPUSCULAR HGB 31.1 pg (27.0-31.0); MEAN PLATELET VOLUME 10.3 fl (9.6-12.3); MONO # 1.2 10*3/uL (0.1-1.0); MONO % 6.5 % (3.0-9.0); NEUT # 14.9 10*3/uL (2.3-7.9); NEUT % 81.9 % (47.0-73.0); NUCLEATED RED BLOOD CELL 0.1 10*3/uL (0.0-0.0); NUCLEATED RED BLOOD CELL 0.3 % (0.0-0.0); PLATELET COUNT AUTOMATED 157 10*3/uL (130-400); RED CELL DISTRI WIDTH 14.9 % (0-14.5)
[2025-04-01 21:25] LABS: ABG O2 SATURATION 99.3 % (94.0-98.0); ARTERIAL BLOOD GAS PH 7.352 (7.350-7.450); ARTERIAL BLOOD GAS PO2 240.7 mmHg (83.0-108.0)
[2025-04-01 21:27] LABS: ABG BASE EXCESS -6.8 mmol/L (-2.0-3.0)
[2025-04-01 21:49] LABS: BUN 54.0 mg/dl (9-23)
[2025-04-01] MEDS ORDERED: NYSTATIN 15 GM BOT T SCH (22:00)
[2025-04-01] MEDS ORDERED: HEEL PROTECTOR DEVICE ONE ×2 (23:56)
[2025-04-02] VITALS (8 sets, daily range): BP systolic 90–152; BP diastolic 39–79
[2025-04-02] MEDS ORDERED: INSULIN REGULAR IN 0.9 % NACL 100 ML IV ONE (00:59)
[2025-04-02 01:09] LABS: BUN 45.0 mg/dl (9-23)
[2025-04-02] MEDS ORDERED: DEXTROSE 5% SALINE 0.45% 1,000 ML IV SCH ×2 (02:40→16:00)
[2025-04-02 06:03] LABS: SGPT/ALT 10.0 U/L (5-49)
[2025-04-02 06:20] LABS: MANUAL DIFF REFLEX YES; MEAN CELL VOLUME 91.0 fl (80.0-94.0); MEAN CORPUSCULAR HGB 30.2 pg (27.0-31.0); MEAN PLATELET VOLUME 10.2 fl (9.6-12.3); NUCLEATED RED BLOOD CELL 0.1 10*3/uL (0.0-0.0); NUCLEATED RED BLOOD CELL 0.3 % (0.0-0.0); PLATELET COUNT AUTOMATED 146 10*3/uL (130-400); RED CELL DISTRI WIDTH 14.9 % (0-14.5)
[2025-04-02 06:23] LABS: BUN 58.0 mg/dl (9-23)
[2025-04-02 06:25] LABS: ACT PARTIAL THROMBO TIME 25.1 SECONDS (20.0-32.1)
[2025-04-02 07:04] LABS: BASOPHILS 1 % (0-1); PLATELET SUFFICIENCY NORMAL (NORMAL)
[2025-04-02 08:38] LABS: ABG BASE EXCESS -6.5 mmol/L (-2.0-3.0); ABG O2 SATURATION 94.4 % (94.0-98.0); ARTERIAL BLOOD GAS PH 7.381 (7.350-7.450); ARTERIAL BLOOD GAS PO2 72.0 mmHg (83.0-108.0)
[2025-04-02 09:17] LABS: BUN 61.0 mg/dl (9-23)
[2025-04-02] MEDS ORDERED: AZITHROMYCIN 250 ML IV SCH (11:00)
[2025-04-02 13:20] LABS: BUN 59.0 mg/dl (9-23)
[2025-04-02 17:21] LABS: BUN 57.0 mg/dl (9-23)
[2025-04-02 22:09] LABS: BUN 50.0 mg/dl (9-23)
[2025-04-03] VITALS (56 sets, daily range): BP systolic 84–133; BP diastolic 47–64
[2025-04-03 02:27] LABS: BUN 51.0 mg/dl (9-23)
[2025-04-03 04:55] LABS: BUN 50.0 mg/dl (9-23); SGPT/ALT 10.0 U/L (5-49)
[2025-04-03 06:18] LABS: BASO # 0.0 10*3/uL (0.0-0.1); BASO % 0.1 % (0.0-1.0); EOS # 0.0 10*3/uL (0.0-0.4); EOS % 0.3 % (1.0-4.0); MEAN CELL VOLUME 91.0 fl (80.0-94.0); MEAN CORPUSCULAR HGB 30.5 pg (27.0-31.0); MEAN PLATELET VOLUME 11.4 fl (9.6-12.3); MONO # 0.8 10*3/uL (0.1-1.0); MONO % 6.7 % (3.0-9.0); NEUT # 9.8 10*3/uL (2.3-7.9); NEUT % 82.4 % (47.0-73.0); NUCLEATED RED BLOOD CELL 0.0 % (0.0-0.0); NUCLEATED RED BLOOD CELL 0.0 10*3/uL (0.0-0.0); PLATELET COUNT AUTOMATED 106 10*3/uL (130-400); RED CELL DISTRI WIDTH 15.5 % (0-14.5)
[2025-04-03] MEDS ORDERED: POTASSIUM CHLORIDE 100 ML IV ONE (08:05)
[2025-04-03 10:14] LABS: BUN 46.0 mg/dl (9-23)
[2025-04-03] MEDS ORDERED: NOREPINEPHRINE BITARTRATE/D5W 250 ML IV SCH (10:20)
[2025-04-03] MEDS ORDERED: Insulin Glargine, Recombinan 1 UNIT/0.01 ML SC ONE (10:30)
[2025-04-03] MEDS ORDERED: NOREPINEPHRINE BITARTRATE/D5W 250 ML IV ONE (10:48)
[2025-04-03 13:18] LABS: BUN 40.0 mg/dl (9-23)
[2025-04-03] MEDS ORDERED: DEXTROSE 50% 25 GM/50 ML VIAL IV PRN (14:45)
[2025-04-03] MEDS ORDERED: INSULIN LISPRO 1 UNIT/0.01 ML SQ SCH (16:30)
[2025-04-03] MEDS ORDERED: VANCOMYCIN HCL 1,250 MG in SODIUM CHLORIDE 0.9% 250 ML IV SCH (18:00)
[2025-04-04] VITALS (22 sets, daily range): BP systolic 98–147; BP diastolic 54–79
[2025-04-04 05:15] LABS: BUN 41.0 mg/dl (9-23)
[2025-04-04 06:46] LABS: BASO # 0.0 10*3/uL (0.0-0.1); BASO % 0.3 % (0.0-1.0); EOS # 0.1 10*3/uL (0.0-0.4); EOS % 0.6 % (1.0-4.0); MEAN CORPUSCULAR HGB 30.7 pg (27.0-31.0); MEAN PLATELET VOLUME 11.1 fl (9.6-12.3); MONO # 0.6 10*3/uL (0.1-1.0); MONO % 5.7 % (3.0-9.0); NEUT # 8.1 10*3/uL (2.3-7.9); NEUT % 81.4 % (47.0-73.0); NUCLEATED RED BLOOD CELL 0.0 % (0.0-0.0); NUCLEATED RED BLOOD CELL 0.0 10*3/uL (0.0-0.0); PLATELET COUNT AUTOMATED 105 10*3/uL (130-400); RED CELL DISTRI WIDTH 15.8 % (0-14.5)
[2025-04-04 07:04] LABS: MEAN CELL VOLUME 94.1 fl (80.0-94.0)
[2025-04-04] MEDS ORDERED: Insulin Glargine, Recombinan 1 UNIT/0.01 ML SC SCH (07:30)
[2025-04-04 11:07] LABS: ACID FAST SPEC PROCESSING Concentration (.)
[2025-04-04] MEDS ORDERED: HEPARIN SODIUM,PORCINE/PF 30 UNIT/3 ML SYRINGE IV PRN (16:15)
[2025-04-04 17:07] LABS: BUN 50.0 mg/dl (9-23)
[2025-04-05] VITALS (7 sets, daily range): BP systolic 101–168; BP diastolic 48–69
[2025-04-05 06:01] LABS: BUN 46.0 mg/dl (9-23)
[2025-04-05 06:02] LABS: BASO # 0.0 10*3/uL (0.0-0.1); BASO % 0.4 % (0.0-1.0); EOS # 0.1 10*3/uL (0.0-0.4); EOS % 0.8 % (1.0-4.0); MEAN CELL VOLUME 94.4 fl (80.0-94.0); MEAN CORPUSCULAR HGB 30.7 pg (27.0-31.0); MEAN PLATELET VOLUME 11.5 fl (9.6-12.3); MONO # 0.7 10*3/uL (0.1-1.0); MONO % 7.1 % (3.0-9.0); NEUT # 7.3 10*3/uL (2.3-7.9); NEUT % 78.3 % (47.0-73.0); NUCLEATED RED BLOOD CELL 0.0 % (0.0-0.0); NUCLEATED RED BLOOD CELL 0.0 10*3/uL (0.0-0.0); PLATELET COUNT AUTOMATED 131 10*3/uL (130-400); RED CELL DISTRI WIDTH 15.6 % (0-14.5)
[2025-04-05] MEDS ORDERED: INSULIN LISPRO 1 UNIT/0.01 ML SQ SCH (07:30)
[2025-04-05] MEDS ORDERED: Insulin Glargine, Recombinan 1 UNIT/0.01 ML SC SCH (07:30)
[2025-04-05 18:19] LABS: ABG BASE EXCESS -7.8 mmol/L (-2.0-3.0); ABG O2 SATURATION 93.9 % (94.0-98.0); ARTERIAL BLOOD GAS PH 7.399 (7.350-7.450); ARTERIAL BLOOD GAS PO2 69.0 mmHg (83.0-108.0)
[2025-04-05] MEDS ORDERED: HYDROmorphONE Hydrochloride 0.5 MG/0.5 ML SYRINGE IV PRN (19:25)
[2025-04-06] VITALS: BP 110/58
[2025-04-06 04:00] VITALS: BP 112/49
[2025-04-06 05:19] LABS: BUN 47.0 mg/dl (9-23); SGPT/ALT 15.0 U/L (5-49)
[2025-04-06 06:11] LABS: BASO # 0.0 10*3/uL (0.0-0.1); BASO % 0.3 % (0.0-1.0); EOS # 0.0 10*3/uL (0.0-0.4); EOS % 0.4 % (1.0-4.0); MEAN CELL VOLUME 93.3 fl (80.0-94.0); MEAN CORPUSCULAR HGB 31.2 pg (27.0-31.0); MEAN PLATELET VOLUME 11.1 fl (9.6-12.3); MONO # 1.1 10*3/uL (0.1-1.0); MONO % 10.2 % (3.0-9.0); NEUT # 8.0 10*3/uL (2.3-7.9); NEUT % 76.7 % (47.0-73.0); NUCLEATED RED BLOOD CELL 0.0 10*3/uL (0.0-0.0); NUCLEATED RED BLOOD CELL 0.2 % (0.0-0.0); PLATELET COUNT AUTOMATED 155 10*3/uL (130-400); RED CELL DISTRI WIDTH 15.6 % (0-14.5)
[2025-04-06 08:00] VITALS: BP 128/59
[2025-04-06] MEDS ORDERED: ATORVASTATIN CALCIUM 80 MG TAB NG SCH (10:00)
[2025-04-06] MEDS ORDERED: ASPIRIN, CHEWABLE 81 MG TAB PO SCH (10:00)
[2025-04-06 12:00] VITALS: BP 115/41
[2025-04-06 16:00] VITALS: BP 142/56
[2025-04-06 20:00] VITALS: BP 125/48
[2025-04-07] VITALS: BP 126/62
[2025-04-07 04:00] VITALS: BP 145/59
[2025-04-07 04:31] LABS: BASO # 0.0 10*3/uL (0.0-0.1); BASO % 0.3 % (0.0-1.0); EOS # 0.1 10*3/uL (0.0-0.4); EOS % 0.6 % (1.0-4.0); MEAN CELL VOLUME 94.8 fl (80.0-94.0); MEAN CORPUSCULAR HGB 30.6 pg (27.0-31.0); MEAN PLATELET VOLUME 10.9 fl (9.6-12.3); MONO # 1.2 10*3/uL (0.1-1.0); MONO % 11.1 % (3.0-9.0); NEUT # 7.8 10*3/uL (2.3-7.9); NEUT % 74.8 % (47.0-73.0); NUCLEATED RED BLOOD CELL 0.0 % (0.0-0.0); NUCLEATED RED BLOOD CELL 0.0 10*3/uL (0.0-0.0); RED CELL DISTRI WIDTH 15.7 % (0-14.5)
[2025-04-07 04:38] LABS: PLATELET COUNT AUTOMATED 210 10*3/uL (130-400)
[2025-04-07 04:53] LABS: BUN 44.0 mg/dl (9-23); SGPT/ALT 29.0 U/L (5-49)
[2025-04-07] MEDS ORDERED: HYDROmorphONE Hydrochloride 0.5 MG/0.5 ML SYRINGE IV PRN (05:48)
[2025-04-07 08:00] VITALS: BP 165/47
[2025-04-07 12:00] VITALS: BP 105/39
[2025-04-07 16:00] VITALS: BP 150/45
[2025-04-07 20:00] VITALS: BP 118/70
[2025-04-08] VITALS: BP 156/76
[2025-04-08] MEDS ORDERED: LORazepam 2 MG/ML VIAL IV PRN (00:45)
[2025-04-08 04:00] VITALS: BP 140/76
[2025-04-08 04:33] LABS: MANUAL DIFF REFLEX YES; MEAN CELL VOLUME 95.1 fl (80.0-94.0); MEAN CORPUSCULAR HGB 30.8 pg (27.0-31.0); MEAN PLATELET VOLUME 10.5 fl (9.6-12.3); NUCLEATED RED BLOOD CELL 0.0 % (0.0-0.0); NUCLEATED RED BLOOD CELL 0.0 10*3/uL (0.0-0.0); PLATELET COUNT AUTOMATED 270 10*3/uL (130-400); RED CELL DISTRI WIDTH 15.5 % (0-14.5)
[2025-04-08 04:57] LABS: BUN 40.0 mg/dl (9-23); SGPT/ALT 35.0 U/L (5-49)
[2025-04-08 05:43] LABS: PLATELET SUFFICIENCY NORMAL (NORMAL)
[2025-04-08] MEDS ORDERED: IOHEXOL 350 MG/ML 100 ML VIAL IV ONE ×2 (06:40→09:10)
[2025-04-08] MEDS ORDERED: SODIUM CHLORIDE 0.9% 100 ML BAG IV ONE (06:40)
[2025-04-08 08:00] VITALS: BP 181/86
[2025-04-08] MEDS ORDERED: SODIUM CHLORIDE 0.9% 100 ML IV ONE (09:10)
[2025-04-08] MEDS ORDERED: ATROPINE SULFATE 1% 2 ML BOTTLE SL PRN (10:40)
[2025-04-08] MEDS ORDERED: CARVEDILOL 6.25 MG TAB PO SCH (11:15)
[2025-04-08 12:00] VITALS: BP 175/83
[2025-04-08] MEDS ORDERED: Morphine Sulfate 10 MG/0.5 ML CONCENTRATE ORAL SYRINGE SL PRN (12:35)
[2025-04-08] MEDS ORDERED: GLYCOPYRROLATE IV PRN (12:35)
[2025-04-08] MEDS ORDERED: GLYCOPYRROLATE 0.4 MG/2 ML VIAL IV PRN ×2 (12:45→12:50)
[2025-04-08] MEDS ORDERED: Morphine Sulfate 10 MG/0.5 ML CONCENTRATE ORAL SYRINGE SL SCH (16:00)
[2025-04-08] MEDS ORDERED: APIXABAN 5 MG TAB PO SCH (22:00)
== END 2025-04-08 13:08 | disposition hospice, home (50) | DRG 870 ==
LOC: ED 09:37 → ICCU 12:52 → EDHOLD 12:52 → ICCU 12:58
PROVIDERS: Emergency Medicine; Internal Medicine Critical Care Medicine; Nurse Practitioner Family; Student in an Organized Health Care Education/Training Program; ADMIT Internal Medicine; ATTEND Internal Medicine
PROC: 5A1955Z Respiratory Ventilation, Greater than 96 Consecutive Hours (ICD-10-PCS; principal; 2025-04-01)
PROC: 0BH17EZ Insertion of Endotracheal Airway into Trachea, Via Natural or Artificial Opening (ICD-10-PCS; 2025-04-01)
PROC: 5A09357 Assistance with Respiratory Ventilation, Less than 24 Consecutive Hours, Continuous Positive Airway Pressure (ICD-10-PCS; 2025-04-01)
PROC: 05HM33Z Insertion of Infusion Device into Right Internal Jugular Vein, Percutaneous Approach (ICD-10-PCS; 2025-04-01)
PROC: B543ZZA Ultrasonography of Right Jugular Veins, Guidance (ICD-10-PCS; 2025-04-01)
PROC: 0BC98ZZ Extirpation of Matter from Lingula Bronchus, Via Natural or Artificial Opening Endoscopic (ICD-10-PCS; 2025-04-03)
PROC: 0BC48ZZ Extirpation of Matter from Right Upper Lobe Bronchus, Via Natural or Artificial Opening Endoscopic (ICD-10-PCS; 2025-04-03)
PROC: 0BC88ZZ Extirpation of Matter from Left Upper Lobe Bronchus, Via Natural or Artificial Opening Endoscopic (ICD-10-PCS; 2025-04-03)
PROC: 0BC58ZZ Extirpation of Matter from Right Middle Lobe Bronchus, Via Natural or Artificial Opening Endoscopic (ICD-10-PCS; 2025-04-03)
PROC: 0BC38ZZ Extirpation of Matter from Right Main Bronchus, Via Natural or Artificial Opening Endoscopic (ICD-10-PCS; 2025-04-03)
PROC: 0BC78ZZ Extirpation of Matter from Left Main Bronchus, Via Natural or Artificial Opening Endoscopic (ICD-10-PCS; 2025-04-03)
PROC: 0BC68ZZ Extirpation of Matter from Right Lower Lobe Bronchus, Via Natural or Artificial Opening Endoscopic (ICD-10-PCS; 2025-04-03)
PROC: 0BCB8ZZ Extirpation of Matter from Left Lower Lobe Bronchus, Via Natural or Artificial Opening Endoscopic (ICD-10-PCS; 2025-04-03)
PROC: 0BC18ZZ Extirpation of Matter from Trachea, Via Natural or Artificial Opening Endoscopic (ICD-10-PCS; 2025-04-03)
PROC: B24BZZ4 Ultrasonography of Heart with Aorta, Transesophageal (ICD-10-PCS; 2025-04-05)
DX: A41.9 Sepsis, unspecified organism (principal); E11.10 Type 2 diabetes mellitus with ketoacidosis without coma; J18.9 Pneumonia, unspecified organism; J96.01 Acute respiratory failure with hypoxia; N17.0 Acute kidney failure with tubular necrosis; E43 Unspecified severe protein-calorie malnutrition; G93.41 Metabolic encephalopathy; I63.511 Cerebral infarction due to unspecified occlusion or stenosis of right middle cerebral artery; N39.0 Urinary tract infection, site not specified; J44.0 Chronic obstructive pulmonary disease with (acute) lower respiratory infection; I24.89 Other forms of acute ischemic heart disease; I48.21 Permanent atrial fibrillation; F41.9 Anxiety disorder, unspecified; F32.A Depression, unspecified; N18.31 Chronic kidney disease, stage 3a; I12.9 Hypertensive chronic kidney disease with stage 1 through stage 4 chronic kidney disease, or unspecified chronic kidney disease; E11.22 Type 2 diabetes mellitus with diabetic chronic kidney disease; G20.A1 Parkinson's disease without dyskinesia, without mention of fluctuations; J44.9 Chronic obstructive pulmonary disease, unspecified; R65.20 Severe sepsis without septic shock; E87.8 Other disorders of electrolyte and fluid balance, not elsewhere classified; R94.31 Abnormal electrocardiogram [ECG] [EKG]; G47.33 Obstructive sleep apnea (adult) (pediatric); E66.01 Morbid (severe) obesity due to excess calories; E83.39 Other disorders of phosphorus metabolism; Z79.4 Long term (current) use of insulin; Z88.0 Allergy status to penicillin; Z82.49 Family history of ischemic heart disease and other diseases of the circulatory system; Z79.82 Long term (current) use of aspirin; Z79.899 Other long term (current) drug therapy

== ENCOUNTER 2025-04-08 13:25 | Inpatient (IN) | payer OTHER ==
[~2025-04-08] VITALS: Ht 175.3 cm; Wt 115.2 kg
[2025-04-08 13:45] VITALS: BP 175/83
[2025-04-08] MEDS ORDERED: ACETAMINOPHEN 650 MG SUPP R PRN (14:15)
[2025-04-08] MEDS ORDERED: Morphine Sulfate 10 MG/0.5 ML CONCENTRATE ORAL SYRINGE SL PRN (14:20)
[2025-04-08] MEDS ORDERED: LORazepam 2 MG/ML VIAL IV PRN (14:20)
[2025-04-08] MEDS ORDERED: GLYCOPYRROLATE 0.4 MG/2 ML VIAL IV PRN (14:25)
[2025-04-08 16:00] VITALS: BP 155/88
[2025-04-08] MEDS ORDERED: GLYCOPYRROLATE IV SCH (16:00)
[2025-04-08] MEDS ORDERED: Morphine Sulfate 10 MG/0.5 ML CONCENTRATE ORAL SYRINGE SL SCH (16:00)
[2025-04-09 08:00] VITALS: BP 157/66
[2025-04-09 16:00] VITALS: BP 176/60
[2025-04-10 08:00] VITALS: BP 183/80
[2025-04-10] MEDS ORDERED: ATROPINE SULFATE 1% 2 ML BOTTLE SL ONE (08:10)
[2025-04-10] MEDS ORDERED: GLYCOPYRROLATE 0.2 MG IV PRN (09:22)
[2025-04-10] MEDS ORDERED: GLYCOPYRROLATE 0.4 MG/2 ML VIAL IV PRN (09:30)
[2025-04-10] MEDS ORDERED: SODIUM CHLORIDE 0.9% 500 ML IV SCH (10:25)
[2025-04-10] MEDS ORDERED: SODIUM CHLORIDE 0.9% 500 ML IV ONE (10:47)
[2025-04-10] MEDS ORDERED: GLYCOPYRROLATE 0.4 MG/2 ML VIAL IV SCH (12:00)
[2025-04-10 14:52] VITALS: BP 159/66
== END 2025-04-10 19:00 | DRG 208 ==
LOC: ICCU 13:25
PROVIDERS: ADMIT Internal Medicine; ATTEND Internal Medicine
PROC: 5A1935Z Respiratory Ventilation, Less than 24 Consecutive Hours (ICD-10-PCS; principal; 2025-04-10)
PROC: 0BH17EZ Insertion of Endotracheal Airway into Trachea, Via Natural or Artificial Opening (ICD-10-PCS; 2025-04-10)
DX: J96.01 Acute respiratory failure with hypoxia (principal); I63.511 Cerebral infarction due to unspecified occlusion or stenosis of right middle cerebral artery; J15.5 Pneumonia due to Escherichia coli; Z51.5 Encounter for palliative care; F41.9 Anxiety disorder, unspecified; I48.91 Unspecified atrial fibrillation; N18.30 Chronic kidney disease, stage 3 unspecified; Z66 Do not resuscitate; J44.9 Chronic obstructive pulmonary disease, unspecified; F32.A Depression, unspecified; E11.22 Type 2 diabetes mellitus with diabetic chronic kidney disease; K57.30 Diverticulosis of large intestine without perforation or abscess without bleeding; I12.9 Hypertensive chronic kidney disease with stage 1 through stage 4 chronic kidney disease, or unspecified chronic kidney disease; G47.30 Sleep apnea, unspecified; Z95.0 Presence of cardiac pacemaker; Z98.1 Arthrodesis status